=== PATIENT | female | born 1945 | race Caucasian/White ===

== ENCOUNTER 2018-04-30 06:23 | Day surgery (SDC) | payer MEDICARE, BC ==
[2018-04-30] MEDS: CEFUROXIME 1MG/0.1ML INTRACAMERAL INJ As Ordered (06:42)
[2018-04-30] MEDS: LIDOCAINE 0.75%/EPINEPHRINE 0.025% IN BSS 1ML SYR INTRACAMERAL (OR ONLY) As Ordered (06:42)
[2018-04-30] MEDS: PHENYLEPHRINE 2.5% OPHTH SOL 2ML OD (07:08)
[2018-04-30] MEDS: OFLOXACIN 0.3 % (OCUFLOX) OPTH SOL 5ML OD (07:08)
[2018-04-30] MEDS: PROPARACAINE 0.5% OPHTH SOL 15ML OD (07:08)
[2018-04-30] MEDS: TROPICAMIDE 1% OPHTH SOLN 2ML OD (07:08)
[2018-04-30] MEDS ORDERED: MIDAZOLAM INJ 2 MG/2 ML VIAL (J2250) As Ordered (07:10)
[2018-04-30] MEDS ORDERED: fentaNYL 100 MCG/2 ML INJECTION (J3010) As Ordered (07:10)
[2018-04-30 07:12] LABS: BEDSIDE GLUCOSE 148 MG/DL (83-110)
[2018-04-30] MEDS: BALANCED SALT IRRIGATION SOLUTION 500ML BAG (FOR OR EYE MACHINE) As Ordered (08:40)
[2018-04-30] MEDS: POVIDONE-IODINE 5% OPHTH PREP SOL 30ML As Ordered (08:40)
[2018-04-30] MEDS: DUOVISC (0.50ML VISCOAT/0.55ML PROVISC) OPHTH KIT As Ordered (08:40)
== END 2018-04-30 10:05 | disposition home or self-care (01) ==
LOC: M SDC 06:23
DX: H25.11 Age-related nuclear cataract, right eye (principal); I10 Essential (primary) hypertension; E78.5 Hyperlipidemia, unspecified; E11.9 Type 2 diabetes mellitus without complications; E03.9 Hypothyroidism, unspecified; K21.9 Gastro-esophageal reflux disease without esophagitis; J44.9 Chronic obstructive pulmonary disease, unspecified; Z79.82 Long term (current) use of aspirin; Z79.899 Other long term (current) drug therapy; Z87.891 Personal history of nicotine dependence
CPT/HCPCS: 66984

== ENCOUNTER 2018-09-18 15:44 | Inpatient (IN) | payer MEDICARE, BC ==
[~2018-09-18] VITALS: Ht 160 cm; Wt 80.8 kg
[~2018-09-18 15:44] MED LIST: ASPI1TAB PO; CALC600T31 PO; FURO40TA2 PO; GLIM2TAB PO; IPRA0.00 INH; LEVO100T5 PO; LOSA100T50 PO; METF10004 PO; OMEG1CAP16 PO; PARO20TA4 PO; POTA10TA16 PO
[2018-09-18] MEDS ORDERED: PRED5TA (16:13)
[2018-09-18] MEDS ORDERED: PANT40TA3 (16:13)
[2018-09-18] MEDS ORDERED: ASPI81TA21 (16:13)
[2018-09-18 17:01] LABS: VENOUS BASE EXCESS -3.6 (-2.0-2.0); VENOUS HCO3 22.3 MEQ/L (23.0-27.0); VENOUS O2 SATURATION 44.4 % (60.0-80.0); VENOUS PARTIAL PRESSURE CO2 43.3 mmHg (38.0-50.0); VENOUS PH 7.329 UNITS (7.330-7.430); VENOUS STANDARD HCO3 20.2 MEQ/L; VENOUS TOTAL CO2 23.6 MEQ/L (24.0-28.0)
[2018-09-18 17:03] LABS: HEMATOCRIT 46.2 % (36.0-47.0); HEMOGLOBIN 14.3 g/dl (12.0-15.5); MEAN CORPUSCULAR HEMOGLOBIN 26.4 pg (27.0-33.0); MEAN CORPUSCULAR VOLUME 85.2 fl (80.0-96.0); PLATELET COUNT, AUTOMATED 246 10^3/uL (150-450); RED BLOOD COUNT 5.42 10^6/uL (4.00-5.40); WHITE BLOOD COUNT 11.1 10^3/uL (4.0-10.0)
[2018-09-18] MEDS ORDERED: DEXTROSE 50% 50 ML SYRINGE IV STA (17:09)
[2018-09-18] MEDS ORDERED: DEXTROSE 50% 50 ML SYRINGE As Ordered ONE (17:10)
[2018-09-18 17:23] LABS: ALBUMIN 3.5 GM/DL (3.2-5.2); BILIRUBIN,DIRECT 0.6 MG/DL (0.0-0.2); BILIRUBIN,TOTAL 1.1 MG/DL (0.2-1.0); CALCIUM LEVEL 9.4 MG/DL (8.8-10.2); CREATININE FOR GFR 0.98 MG/DL (0.55-1.30); GLOMERULAR FILTRATION RATE 59.1 (>39); POTASSIUM SERUM 4.3 MEQ/L (3.5-5.1); THYROID STIMULATING HORMONE 1.97 uIU/ML (0.358-3.740); TOTAL PROTEIN 7.6 GM/DL (6.4-8.2)
[2018-09-18] MEDS ORDERED: IPRATROPIUM 0.5MG/ALBUTEROL 2.5MG INH SOL UD 3ML (DUONEB)(J7620) NEB ONE (19:45)
--- NOTE | 2018-09-18 20:28 | REP ---
Chest two views HISTORY: Shortness of breath Comparison: None A diffuse increase in interstitial markings is present in the lungs. The cardiac silhouette is enlarged. The pulmonary vasculature is prominent. There are small bilateral pleural effusions. The bony structure is intact. IMPRESSION: Findings consistent with congestive heart failure. Electronically Signed by Andrew Burgos MD 09/18/2018 08:20 P
[2018-09-18] MEDS ORDERED: FUROSEMIDE 100 MG/10 ML VIAL (J1940) IV ONE (20:30)
[2018-09-18] MEDS ORDERED: OMEG1CAP16 PO (20:54)
[2018-09-18 20:59] LABS: MB/CK RELATIVE INDEX 10.82 (< OR =4)
[2018-09-18] MEDS ORDERED: NORCO, ANEXSIA 5/325MG TABLET (HYDROcodone/ACETAMINOPHEN) PO PRN (23:30)
[2018-09-18] MEDS ORDERED: PERCOCET 5MG/325MG TAB PO PRN (23:30)
[2018-09-18] MEDS ORDERED: ACETAMINOPHEN TAB 650MG DOSE (2X325MG) PO PRN (23:30)
[2018-09-18] MEDS ORDERED: BISACODYL 5 MG TAB PO PRN (23:30)
[2018-09-19 03:20] LABS: BASO # 0.1 10^3/uL (0.0-0.2); BASO % 0.4 % (0.0-1.0); EOS % 0.2 % (0.0-3.0); HEMOGLOBIN 13.4 g/dl (12.0-15.5); LYMPH # 1.6 10^3/uL (1.5-4.5); LYMPH % 13.3 % (24.0-44.0); MEAN CORPUSCULAR HEMOGLOBIN 26.2 pg (27.0-33.0); MEAN CORPUSCULAR HGB CONC 30.5 g/dl (32.0-36.5); MEAN CORPUSCULAR VOLUME 86.1 fl (80.0-96.0); MONO % 7.9 % (0.0-5.0); NEUTROPHILS # 9.4 10^3/uL (1.8-7.7); NEUTROPHILS % 77.6 % (36.0-66.0); PLATELET COUNT, AUTOMATED 250 10^3/uL (150-450); RED BLOOD COUNT 5.11 10^6/uL (4.00-5.40); WHITE BLOOD COUNT 12.1 10^3/uL (4.0-10.0)
[2018-09-19 03:41] LABS: TROPONIN I 0.88 NG/ML (< 0.10)
[2018-09-19 04:00] LABS: ALBUMIN 3.1 GM/DL (3.2-5.2); CALCIUM LEVEL 8.9 MG/DL (8.8-10.2); CREATININE FOR GFR 1.11 MG/DL (0.55-1.30); GLOMERULAR FILTRATION RATE 51.2 (>39); POTASSIUM SERUM 3.8 MEQ/L (3.5-5.1); THYROID STIMULATING HORMONE 2.56 uIU/ML (0.358-3.740); TOTAL PROTEIN 6.6 GM/DL (6.4-8.2)
[2018-09-19] MEDS: DEXTROSE 50% 50 ML SYRINGE IV PRN (04:00)
[2018-09-19] MEDS ORDERED: GLUCOSE 4 GM CHEW TABLET PO PRN (04:30)
[2018-09-19] MEDS ORDERED: GLUCAGON FOR INJ 1 MG VIAL (J1610) SC PRN (04:30)
[2018-09-19] MEDS ORDERED: IPRATROPIUM 0.5MG/ALBUTEROL 2.5MG INH SOL UD 3ML (DUONEB)(J7620) NEB PRN ×2 (04:45→07:30)
[2018-09-19] MEDS ORDERED: D10W/0.45% SODIUM CHLORIDE 1,000 ML IV SCH (05:00)
[2018-09-19 05:25] LABS: HEMOGLOBIN A1c 7.3 %
[2018-09-19] MEDS ORDERED: FUROSEMIDE 40 MG/4 ML VIAL (J1940) IV SCH ×4 (06:00→16:00)
--- NOTE | 2018-09-19 06:44 | HPEPDOC ---
[facility] Medical History & Physical Date of Admission Sep 19, 2018 Primary Care Physician: A Attending Physician: A History and Physical CHIEF COMPLAINT: [sob ] HISTORY OF PRESENT ILLNESS: This is a 73 yo female with pmhx of copd on 4L home oxygen who presented to the ed with c/o fatigue and increased sob which has been going on for a long time, but has gotten progressively worse over the past few days. She denied any chest pain, fever , chills, cough or sputum production. ROS - all 14 point review of system is negative except for whats listed in HPI Physical exam Gen: NAD, healthy appearing HEENT: normocephalic , atraumatic, no discharge from ears or nose, no oropharyngeal erythema or exudate, neck is supple, no lymphadenopathy, trachea midline CVS: RRR, normal S1n S2, no murmurs, rubs, or gallops, +2 pitting edema in right leg, +1 in left leg, no jvd Resp: no rhochi, wheezes, but crackles her diffusely Abd : soft nontender, normal bowel sounds, no rebound tenderness or guarding MSK: no swelling, full range of motion, strength 5/5 neuro: AOA x3, no focal deficit Psych : normal mood and judgement vitals - significant for desaturation 70% when patient arrived in ed per endorsement , but it was quiickly im proved with supplemental oxygen - see vitals below Labs: significant for probnp of 4000, troponin 0.73, f/s 39 - repeat was higher after treatment ; however another f/s this morning was 28 per nurse EKbpm , a lot of artifats , no real ST elevation or depression , no T wave inversion IMAGING: CXR: A diffuse increase in interstitial markings is present in the lungs. The cardiac silhouette is enlarged. The pulmonary vasculature is prominent. There are small. bilateral pleural effusions. ASSESSMENT: CHF exacerbation chronic copd est DM2 hypoglycemia b/l lower extremity edema - right v> left PLAN: f/u echo trend trop 0.73 to 0.83 elevated troponin could be from chf exacerbation aspirin monitor in tele f/u venous doppler duoneb q4h prn symbicort bid f/u insulin level, pro insulin, glucagon and hba1c f/u am cortisol level hypoglycemic protocol hold all DM2 meds started 30cc of D10 drip for recurrent hypoglycemic episodes f/s q1h dvt ppx gi ppx full code, from home Vital Signs Vital Signs Date Time Temp Pulse Resp B/P (MAP) Pulse Ox O2 Delivery O2 Flow Rate FiO2 09/19/18 02:16 105 09/19/18 02:05 112/59 (76) 09/19/18 00:01 95 09/18/18 21:20 Venturi Mask 15.0 40 09/18/18 15:57 97.0 09/18/18 15:49 20 Laboratory Data Labs 24H Laboratory Tests 2 09/18/18 15:59: Bedside Glucose (Misc Panel) 93 09/18/18 16:02: Nucleated Red Blood Cells % (auto) 0.0, Blood Gas Bicarbonate Standard 20.2, Venous Blood pH 7.329L, Venous Blood Partial Pressure CO2 43.3, Venous Blood Partial Pressure O2 28.0L, Venous Blood Total Carbon Dioxide 23.6L, Venous Blood HCO3 22.3L, Venous Blood Oxygen Saturation 44.4L, Venous Blood Base Excess - 3.6L, Anion Gap 10, Glomerular Filtration Rate 59.1, Calcium Level 9.4, Aspartate Amino Transf (AST/SGOT) 28, Alanine Aminotransferase (ALT/SGPT) 20, Alkaline Phosphatase 96, Total Bilirubin 1.1H, Direct Bilirubin 0.6H, Total Creatine Kinase 73, Creatine Kinase MB 8.0H, Creatine Kinase MB Relative Index 10.82H, CH-Wgt-H-Type Natriuretic Peptide 4434H, Total Protein 7.6, Albumin 3.5, Albumin/Globulin Ratio 0.85L, Thyroid Stimulating Hormone (TSH) 1.970 09/18/18 17:07: Bedside Glucose (Misc Panel) 39*L 09/18/18 17:33: Bedside Glucose (Misc Panel) 111H 09/18/18 18:42: Bedside Glucose (Misc Panel) 133H 09/18/18 19:38: Bedside Glucose (Misc Panel) 155H 09/18/18 21:42: Troponin I 0.73H 09/19/18 03:06: Troponin I 0.88#H, Immature Granulocyte % (Auto) 0.6, White Blood Count 12.1H, Red Blood Count 5.11, Hemoglobin 13.4, Hematocrit 44.0, Mean Corpuscular Volume 86.1, Mean Corpuscular Hemoglobin 26.2L, Mean Corpuscular Hemoglobin Concent 30.5L, Red Cell Distribution Width 20.3H, Platelet Count 250, Neutrophils (%) (Auto) 77.6H, Lymphocytes (%) (Auto) 13.3L, Monocytes (%) (Auto) 7.9H, Eosinophils (%) (Auto) 0.2, Basophils (%) (Auto) 0.4, Neutrophils # (Auto) 9.4H, Lymphocytes # (Auto) 1.6, Monocytes # (Auto) 1.0H, Eosinophils # (Auto) 0.0, Basophils # (Auto) 0.1, Nucleated Red Blood Cells % (auto) 0.0, Anion Gap 10, Glomerular Filtration Rate 51.2, Blood Urea Nitrogen 13, Creatinine 1.11, Sodium Level 137, Potassium Level 3.8, Chloride Level 99, Carbon Dioxide Level 28, Calcium Level 8.9, Aspartate Amino Transf (AST/SGOT) 28, Alanine Aminotransferase (ALT/SGPT) 20, Alkaline Phosphatase 84, Total Bilirubin 1.0, Total Protein 6.6, Albumin 3.1L, Albumin/Globulin Ratio 0.89L, Thyroid Stimulating Hormone (TSH) 2.560 09/19/18 04:01: Bedside Glucose (Misc Panel) 24*L CBC/BMP Laboratory Tests 09/18/18 16:02 Red Blood Count 5.42 H, Mean Corpuscular Volume 85.2, Mean Corpuscular Hemoglobin 26.4 L, Mean Corpuscular Hemoglobin Concent 31.0 L, Red Cell Distribution Width 20.5 H 09/19/18 03:06 Red Blood Count 5.11, Mean Corpuscular Volume 86.1, Mean Corpuscular Hemoglobin 26.2 L, Mean Corpuscular Hemoglobin Concent 30.5 L, Red Cell Distribution Width 20.3 H, Neutrophils (%) (Auto) 77.6 H, Lymphocytes (%) (Auto) 13.3 L, Monocytes (%) (Auto) 7.9 H, Eosinophils (%) (Auto) 0.2, Basophils (%) (Auto) 0.4, Neutrophils # (Auto) 9.4 H, Lymphocytes # (Auto) 1.6, Monocytes # (Auto) 1.0 H, Eosinophils # (Auto) 0.0, Basophils # (Auto) 0.1, Calcium Level 8.9, Aspartate Amino Transf (AST/SGOT) 28, Alanine Aminotransferase (ALT/SGPT) 20, Alkaline Phosphatase 84, Total Bilirubin 1.0, Total Protein 6.6, Albumin 3.1 L Home Medications Scheduled ([place] 3 500 500 mg) 1 Cap Cap, 1 CAP PO DAILY Albuterol/Ipratropium (Ipratropium [place]/Albut 0.5-2.5 (3) mg/3Ml) 1 Adarsh Adarsh, 1 ADARSH INH BID Calcium (Calcium) 600 Mg Tab, 600 MG PO BID Furosemide (Furosemide) 40 Mg Tab, 40 MG PO DAILY Glimepiride (Glimepiride) 2 Mg Tab, 2 MG PO BID Levothyroxine Sodium (Synthroid) 100 Mcg Tab, 100 MCG PO DAILY Losartan Potassium (Losartan Potassium) 100 Mg Tab, 100 MG PO DAILY Metformin Hydrochloride (Metformin HCl) 1,000 Mg Tab, 1,000 MG PO BID Paroxetine Hydrochloride (Paroxetine) 20 Mg Tab, 20 MG PO DAILY Potassium Chloride (Potassium Chloride ER) 10 Meq Tab, 10 MEQ PO BID Allergies Coded Allergies: No Known Allergies (Unverified , 04/22/18) ELVIA SANCHEZ MD Sep 19, 2018 04:38
[2018-09-19 07:28] LABS: C REACTIVE PROTEIN QUANTITATIV 0.42 MG/DL (0.00-0.30)
[2018-09-19] MEDS: IPRATROPIUM 0.5MG/ALBUTEROL 2.5MG INH SOL UD 3ML (DUONEB)(J7620) NEB SCH ×3 (08:00→20:00)
--- NOTE | 2018-09-19 08:05 | ECGEPIP ---
Stationary ECG Study [facility] - ED Test Date: 2018-09-18 Pat Name: VITOR BRAND Department: Room: [place] [address] Gender: F Methods Engineer: bernard : 1945 Requested By: LIONEL CALLAWAY Order Number: [id number] Reading MD: Desean Khan Measurements Intervals [place] Rate: 99 P: 84 [place]: 157 QRS: 115 QRSD: 95 T: 70 QT: 338 QTc: 434 Interpretive Statements SINUS RHYTHM INCOMPLETE RIGHT BUNDLE BRANCH BLOCK POSSIBLE RIGHT VENTRICULAR HYPERTROPHY MINIMAL ST DEPRESSION NO PRIORS FOR COMPARISON Electronically Signed On 09-19-2018 8:05:09 EST by Desean Khan
[2018-09-19 08:11] LABS: MB/CK RELATIVE INDEX 5.64 (< OR =4); TROPONIN I 0.79 NG/ML (< 0.10)
[2018-09-19] MEDS: PANTOPRAZOLE 40MG TAB (PROTONIX) PO SCH (08:53)
[2018-09-19] MEDS: LEVOTHYROXINE 100MCG TABLET (0.1MG) PO SCH (08:53)
[2018-09-19] MEDS: ASPIRIN 81 MG ENTERIC TAB PO SCH (08:54)
[2018-09-19] MEDS: PARoxetine 20 MG TAB PO SCH (08:54)
[2018-09-19] MEDS: LOSARTAN 50 MG TAB PO SCH ×2 (08:59→09:06)
[2018-09-19] MEDS ORDERED: ISOVUE-370 76% 100ML VIAL (Q9967) As Ordered ONE (09:23)
[2018-09-19] MEDS: ENOXAPARIN 40 MG/0.4 ML SYRINGE (J1650) SC SCH (09:50)
[2018-09-19] MEDS: SYMBICORT 80/4.5MCG INHALER 6GM INH SCH ×2 (11:12→20:00)
--- NOTE | 2018-09-19 11:20 | REP ---
CT ANGIO CHEST: HISTORY: Hypoxia. CONTRAST: Isovue-370, 75 mL. There are no filling defects in the main, right, and left pulmonary arteries or their branches. A diffuse increase in interstitial markings is present in the lungs, greater in the lower than upper lobes. There is no pleural effusion. The cardiac silhouette is enlarged. There is no aneurysm. Atherosclerotic calcification is present in the thoracic aorta. Degenerative change is present in the thoracic spine. Calcification is present in the gallbladder, consistent with cholelithiasis. A 1.8 cm nodule is present in the left adrenal gland. This most likely represents an adenoma. IMPRESSION: 1. There is no pulmonary embolism. 2. There is a diffuse increase in interstitial markings in the lungs, greater in the lower than upper lobes. This may represent interstitial edema, pneumonia, or chronic interstitial fibrosis. 3. Cardiomegaly. 4. Cholelithiasis. Electronically Signed by Andrew Burgos MD 09/19/2018 11:30 A
[2018-09-19 12:29] VITALS: BP 95/66
[2018-09-19 12:30] VITALS: BP 88/56
[2018-09-19 13:46] LABS: MB/CK RELATIVE INDEX 4.58 (< OR =4); TROPONIN I 0.64 NG/ML (< 0.10)
[2018-09-19 15:01] VITALS: BP 96/68
[2018-09-19 15:45] VITALS: BP 101/68
[2018-09-19] MEDS: FUROSEMIDE 40 MG/4 ML VIAL (J1940) IV SCH (17:00)
[2018-09-19 17:21] VITALS: BP 92/66
[2018-09-19] MEDS: HumaLOG INSULIN (NovoLOG) PER UNIT SC SCH ×2 (17:30→20:59)
--- NOTE | 2018-09-19 19:38 | IPN ---
DATE: 09/19/2018 Patient admitted overnight. Currently feeling much more comfortable. Denies any chest pain, pressure or discomfort. Denies any nausea or vomiting. Continued to report shortness of breath. Reported worsening lower extremity edema over the past 3-5 days. Denies any cough or fever. VITAL SIGNS: Temperature 99.6, pulse 109, respirations 20, blood pressure 95/66, pulse oximetry 91% on 3 liters nasal cannula. LABORATORY: WBC 12, hemoglobin and hematocrit (H and H) 13.4 and 44, platelets 250. Chemistry: Sodium 137, potassium 3.8, chloride 99, bicarbonate 28, BUN 13, creatinine 1.11. PHYSICAL EXAMINATION: GENERAL: Patient comfortable, eating breakfast, in no acute distress. HEENT: Normocephalic, atraumatic. CARDIAC: Regular. S1, S2. 2/6 systolic murmur. PULMONARY: Diffuse fine crackles bilateral. ABDOMEN: Soft, nontender. Positive bowel sounds. EXTREMITIES: One plus bilateral lower extremity edema. Dorsalis pedis (DP)/posterior tibial (PT) pulses intact. ASSESSMENT AND PLAN: This is a 73-year-old female patient with underlying medical history of chronic obstructive pulmonary disease (COPD), 2-4 liter oxygen at home, diabetes mellitus type 2, obesity, hypertension, dyslipidemia, depression, presented with progressive worsening shortness of breath, bilateral lower extremity edema, and acute on chronic hypoxic respiratory failure. PROBLEMS: 1. Acute on chronic hypoxic respiratory failure. Likely secondary to new onset congestive heart failure (CHF). Possible right heart failure, cor pulmonale. Unknown ejection fraction. Diuresis with Lasix. Strict input and output (I and O), daily weight. Consulted cardiology. Serial cardiac enzymes. Monitor blood pressure. Continue aspirin. 2. Mild troponin elevation. Likely secondary to demand ischemia, secondary to CHF. Cardiology consulted. Stat echocardiogram has been ordered. 3. Chronic hypoxic respiratory failure. Secondary to chronic obstructive pulmonary disease (COPD). Oxygen supplementation. CT angiogram negative for pulmonary embolism (PE). 4. Hypoglycemia. Unknown etiology. Possible secondary to poor oral intake in the setting of home sulfonylurea intake. Hypoglycemic workup has been ordered. Fingersticks every 2 hours initially on D10 fluids. Currently tolerating oral with stable glucose. Will cover with basal bolus insulin. Will cover with meal target insulin protocol. A1c is appreciated. 5. History of COPD. Patient currently not having any wheeze. CT scan appreciated. Supportive care. Nebulizer treatment as needed. 6. Hypertension. Patient currently borderline blood pressure. Holding losartan. Patient on Lasix. Monitor blood pressure. Adjust as needed. 7. Depression. Continue current medication. 8. Diabetes with hypoglycemia. Holding oral medications. Insulin via protocol. Follow fingersticks. 9. Hypothyroidism. Continue Synthroid. Thyroid stimulating hormone (TSH) appreciated. 10. Obesity complicating care. 11. Lactic acidosis. Likely secondary to CHF. Will monitor closely. 12. Deep venous thrombosis (DVT) prophylaxis. Lovenox subcutaneously. DISPOSITION: Pending clinical improvement, echocardiogram, cardiology consultation.
[2018-09-19 20:00] VITALS: BP 92/60
[2018-09-20] VITALS (7 sets, daily range): BP systolic 11–111; BP diastolic 58–74
[2018-09-20] MEDS: IPRATROPIUM 0.5MG/ALBUTEROL 2.5MG INH SOL UD 3ML (DUONEB)(J7620) NEB SCH ×4 (02:36→20:00)
[2018-09-20 05:51] LABS: HEMATOCRIT 37.8 % (36.0-47.0); HEMOGLOBIN 11.8 g/dl (12.0-15.5); MEAN CORPUSCULAR HGB CONC 31.2 g/dl (32.0-36.5); MEAN CORPUSCULAR VOLUME 83.4 fl (80.0-96.0); PLATELET COUNT, AUTOMATED 213 10^3/uL (150-450); RED BLOOD COUNT 4.53 10^6/uL (4.00-5.40); WHITE BLOOD COUNT 7.7 10^3/uL (4.0-10.0)
[2018-09-20] MEDS: LEVOTHYROXINE 100MCG TABLET (0.1MG) PO SCH (06:00)
[2018-09-20 06:13] LABS: ALBUMIN 2.5 GM/DL (3.2-5.2); BILIRUBIN,TOTAL 0.9 MG/DL (0.2-1.0); CALCIUM LEVEL 8.2 MG/DL (8.8-10.2); CHOLESTEROL RISK RATIO 1.895 (<5); CREATININE FOR GFR 1.11 MG/DL (0.55-1.30); GLOMERULAR FILTRATION RATE 51.2 (>39); MAGNESIUM LEVEL 1.6 MG/DL (1.8-2.4); POTASSIUM SERUM 3.4 MEQ/L (3.5-5.1); TOTAL PROTEIN 5.9 GM/DL (6.4-8.2)
[2018-09-20] MEDS: HumaLOG INSULIN (NovoLOG) PER UNIT SC SCH ×4 (07:30→20:47)
--- NOTE | 2018-09-20 07:45 | ECHO ---
DATE OF SERVICE: 09/19/2018 REFERRING PROVIDER: Dr. Vannesa Perez PRIMARY TRICK RODEO RIDER: Dr. Nunes PATIENT LOCATION: Room 3224 REASON FOR ECHOCARDIOGRAM: Shortness of breath. 2D MEASUREMENTS: IVS: 0.9 cm LV: 4.6 cm LVPW: 0.9 cm LA: 3.4 cm Aorta: 2.9 cm IVC: 3.7 cm DOPPLER MEASUREMENTS: Peak velocity across the aortic valve: 1.1 m/s Mitral E: 0.59 Mitral A: 0.34 with a ratio of 0.6 Maximum tricuspid valve velocity: 3.7 m/s 2D COMMENTS: 1. Normal left ventricular size and wall thickness, but with a moderately depressed global left ventricular systolic dysfunction. There was moderate global hypokinesis. The estimated left ventricular systolic ejection fraction is 30-35%. 2. Normal left atrium. Dilated right atrium and right ventricle. There seems to be right ventricular systolic dysfunction with hypokinesis of the right ventricular free wall noted. 3. Normal aortic root. 4. Small pericardial effusion, no evidence of cardiac tamponade. 5. Mildly calcified aortic valve with normal leaflet excursion. Mildly calcified mitral annulus with normal anterior mitral valve leaflet motion. The tricuspid valve appeared to be normal, as well as the pulmonic valve. The proximal pulmonary artery branches were not well visualized. 6. The inferior vena cava was dilated at 2.9 cm, central venous pressure is most likely elevated. Doppler, it detects trace mitral regurgitation and severe tricuspid regurgitation. The calculated pulmonary artery systolic pressure was more than 70 mmHg. Abnormal relaxation patter was noted across the mitral valve leaflets as well as the mitral valve annulus consistent with delayed relaxation. IMPRESSION: 1. Moderate global left ventricular systolic dysfunction with global hypokinesis. There were features of left ventricular diastolic dysfunction, grade 1. 2. Aortic valve sclerosis without stenosis or aortic regurgitation. 3. Mitral annulus calcification with trace mitral regurgitation. 4. Severe tricuspid regurgitation with severe pulmonary hypertension and dilated right heart chambers. There were also findings consistent with right ventricular systolic dysfunction. 5. The inferior vena cava was dilated, central venous pressure is most likely elevated.
[2018-09-20] MEDS ORDERED: POTASSIUM CHLORIDE 10 MEQ SR TABLET PO ONE (08:30)
[2018-09-20] MEDS: PARoxetine 20 MG TAB PO SCH (08:48)
[2018-09-20] MEDS: FUROSEMIDE 40 MG/4 ML VIAL (J1940) IV SCH (08:48)
[2018-09-20] MEDS: ENOXAPARIN 40 MG/0.4 ML SYRINGE (J1650) SC SCH (08:48)
[2018-09-20] MEDS: ASPIRIN 81 MG ENTERIC TAB PO SCH (08:48)
[2018-09-20] MEDS: PANTOPRAZOLE 40MG TAB (PROTONIX) PO SCH (08:49)
[2018-09-20] MEDS ORDERED: MAG SULF 1GM/100ML (MAG RUN) 1 GM in APPROPRIATE DILUENT 1 EA IV ONE (09:00)
[2018-09-20] MEDS: MAGNESIUM CHLORIDE 64 MG TABCR (SLO MAG) PO SCH (09:00)
[2018-09-20] MEDS: SYMBICORT 80/4.5MCG INHALER 6GM INH SCH ×2 (10:22→21:23)
--- NOTE | 2018-09-20 15:41 | ECGEPIP ---
Stationary ECG Study [facility] Test Date: 2018-09-19 Pat Name: VITOR BRAND Department: Room: [place] [address] Gender: F [employer] Law Clerk: SULY : 1945 Requested By: ELVIA SANCHEZ Order Number: [id number] Reading MD: Arsh Turcios Measurements Intervals [place] Rate: 98 P: 64 [place]: 147 QRS: 115 QRSD: 100 T: 147 QT: 392 QTc: 502 Interpretive Statements SINUS RHYTHM WITH OCCASIONAL ECTOPIC PREMATURE COMPLEXES POSSIBLE LEFT ATRIAL ENLARGEMENT INCOMPLETE RIGHT BUNDLE BRANCH BLOCK POSSIBLE RIGHT VENTRICULAR HYPERTROPHY NONSPECIFIC ST-T ABNORMALITY LOW VOLTAGE QRS COMPLEXES PRIOR TRACING ON 09/18/2018 AT 21:27:00 P.M.. NO REMARKABLE CHANGES BUT PREMATURE BEATS/PVCS Electronically Signed On 09-20-2018 15:41:21 EST by Arsh Turcios
[2018-09-20] MEDS: EUCERIN 120GM CREAM TOP SCH ×2 (16:00→20:47)
--- NOTE | 2018-09-20 20:03 | IPNPDOC ---
Text Note Date of Service The patient was seen on 09/20/18. NOTE respiration improved. Denied chest pain pressure or discomfort. PHYSICAL EXAMINATION: GENERAL: Patient comfortable, eating breakfast, in no acute distress. HEENT: Normocephalic, atraumatic. CARDIAC: Regular. S1, S2. 2/6 systolic and diastolic murmur. PULMONARY: Diffuse fine crackles bilateral. ABDOMEN: Soft, nontender. Positive bowel sounds. EXTREMITIES: One plus bilateral lower extremity edema. Dorsalis pedis (DP)/posterior tibial (PT) pulses intact. ASSESSMENT AND PLAN: This is a 73-year-old female patient with underlying medical history of chronic obstructive pulmonary disease (COPD), 2-4 liter oxygen at home, diabetes mellitus type 2, obesity, hypertension, dyslipidemia, depression, presented with progressive worsening shortness of breath, bilateral lower extremity edema, and acute on chronic hypoxic respiratory failure. PROBLEMS: 1. Acute on chronic hypoxic respiratory failure. Secondary to new onset congestive heart failure (CHF) with systolic dysfunction EF 30-35%, right HF. cor pulmonale. Diuresis with Lasix. Strict input and output (I and O), daily weight. Consulted cardiology. Serial cardiac enzymes. Monitor blood pressure. Continue aspirin. need outpatient f/u with pulmonary for Pul HTN 2. Mild troponin elevation. Likely secondary to demand ischemia, secondary to CHF. Cardiology consulted. Stat echocardiogram has been ordered. 3. Chronic hypoxic respiratory failure. Secondary to chronic obstructive pulmonary disease (COPD). Oxygen supplementation. CT angiogram negative for pulmonary embolism (PE). 4. Hypoglycemia. Unknown etiology. Possible secondary to poor oral intake in the setting of home sulfonylurea intake. Hypoglycemic workup has been ordered. Fingersticks every 2 hours initially on D10 fluids. Currently tolerating oral with stable glucose. insulin as per protocol A1c is appreciated. 5. History of COPD. Patient currently not having any wheeze. CT scan appreciated. Supportive care. Nebulizer treatment as needed. 6. Hypertension. Patient currently borderline blood pressure. Holding losartan. Patient on Lasix. Monitor blood pressure. Adjust as needed. 7. Depression. Continue current medication. 8. Diabetes with hypoglycemia. Holding oral medications. Insulin via protocol. Follow fingersticks. 9. Hypothyroidism. Continue Synthroid. Thyroid stimulating hormone (TSH) appreciated. 10. Obesity complicating care. 11. Lactic acidosis. Likely secondary to CHF. Will monitor closely. resolved 12. Deep venous thrombosis (DVT) prophylaxis. Lovenox subcutaneously. DISPOSITION: Pending clinical improvement, cardiology consultation, PT VS,Nikolas, I+O VS, Nikolas, I+O Laboratory Tests 09/20/18 04:46 Red Blood Count 4.53, Mean Corpuscular Volume 83.4, Mean Corpuscular Hemoglobin 26.0 L, Mean Corpuscular Hemoglobin Concent 31.2 L, Red Cell Distribution Width 19.4 H, Calcium Level 8.2 L, Aspartate Amino Transf (AST/SGOT) 23, Alanine Aminotransferase (ALT/SGPT) 16, Alkaline Phosphatase 70, Total Bilirubin 0.9, Triglycerides Level 58, LDL Cholesterol 31, Total Protein 5.9 L, Albumin 2.5 L Vital Signs Date Time Temp Pulse Resp B/P (MAP) Pulse Ox O2 Delivery O2 Flow Rate FiO2 09/20/18 19:49 4.0 09/20/18 19:48 97.2 99 22 97/61 (73) 91 High Flow Cannula 09/19/18 12:30 35 I&O- Last 24 Hours up to 6 AM 09/20/18 06:00 Intake Total 825 ml Output Total 1150 ml Balance -325 ml DEDRA NAPOLES MD Sep 20, 2018 20:03
--- NOTE | 2018-09-20 21:10 | CR ---
DATE OF SERVICE: 09/19/2018 REFERRING PROVIDER: Vannesa Perez MD PRIMARY PHYSICIAN: Dr. Nunes. REASON FOR THE CONSULT: Shortness of breath. HISTORY OF PRESENTING ILLNESS: A 73-year-old woman was sent to the emergency room (ER) by her son because he has noticed that she appeared to be more shortness of breath than usual. When she was being brought to the ER, she was found to be hypoglycemic with a blood sugar fingerstick reported to be about 30. Upon arrival to the ER, her vital signs revealed a blood pressure of 101/68 with a pulse of 101 and her oxygen saturation on room air was reported to be 90%. For her hypoglycemia, she was treated with D50 by emergency medical services (EMS). Her laboratories reveal manifestation of heart failure and she was admitted for further management and monitoring. Cardiology consult was called. When I saw Ms. Sue Deras on the floor, she was lying supine in bed and in no acute distress at rest and her brother was at the bedside. She denies any chest pain. She has been having more shortness of breath than usual at home but she stated that she feels much better since the hospital. She has increasing bilateral pedal edema but no orthopnea or paroxysmal nocturnal dyspnea (PND). She denied any palpitations. She has no focal manifestation. She has a cough but not hematemesis. She denies any fever or chills. She has no nausea, vomiting, diarrhea, melena, or hematemesis. She has a past medical history positive for chronic obstructive pulmonary disease (COPD) for which she has been seen with transfer man in town, hypertension, hyperlipidemia, diabetes mellitus, hypothyroidism, anxiety/depression, arthritis with degenerative joint disease and degenerative disc disease. There is no known history of coronary artery disease, myocardial infarction, significant valvular heart disease, atrial fibrillation, cerebrovascular accident (CVA), cardiomyopathy, sudden cardiac or kidney disease. MEDICATIONS AT HOME: - metformin 1000 mg by mouth twice a day - losartan 100 mg by mouth daily - glimepiride 2 mg by mouth twice a day - levothyroxine 100 mcg by mouth daily - paroxetine 20 mg by mouth daily - calcium 600 mg by mouth twice a day - Lasix 40 mg by mouth daily - Destiny Ciel 10 mEq by mouth daily - albuterol/ipratropium bromide via inhalation twice a day - fish oil one capsule by mouth daily SOCIAL HISTORY: The patient lives at home with her son. She does not smoke or abuse alcohol. She is a former smoker. She denies ethanol (EtOH) abuse. ALLERGIES: She has no known drug allergies. PHYSICAL EXAMINATION: On physical examination, patient is alert and oriented with mild shortness of breath at rest but in no acute distress at rest. Her vital signs when I saw her revealed a blood pressure of 101/68 with a pulse of 106, respirations 20, and her maximum temperature was 97.6 degrees Fahrenheit with an oxygen saturation of 89% to 98% on 3 liters nasal cannula. Examination of the head: Atraumatic. Neck is supple with extended jugular. The lungs reveal minimal crackles but no wheezing. The heart examination revealed a regular heart sound without gallops. The point of maximal impulse (PMI) is not displaced. There is no rub. Abdomen is soft and nontender. Extremities reveal +2 to +3 bilateral leg edema. Neurologic examination grossly is negative for focal deficit. LABORATORIES: Basic metabolic panel (BMP) this morning revealed a sodium of 137, potassium 3.8, chloride 99, CO2 28, BUN 13, creatinine 1.11, glomerular filtration rate (GFR) 51.2 and fasting glucose 28 with a calcium of 8.9. Liver enzymes reveal a total bilirubin of 1.0, AST 28, ALT 20, alkaline phosphatase 84, total protein is 6.6. Serum thyroid-stimulating hormone (TSH) is 2.5. First serum troponin was 0.73, then 0.88, then 0.79 and 0.64. This would be numbers 1 up to number 4. Serum lactic acid was 2.8 and four hours later was 2.0. Serum proBNP on admission was 4,434. Serum TSH was 1.97. Complete blood count (CBC) done today revealed a white blood cell (WBC) of 12.1, hemoglobin 13.4, hematocrit 44.0 and platelets 260,000. Toxicology screening is pending. Chest x-ray on 09/18/2018 on admission revealed findings consistent with congestive heart failure and mild cardiomegaly. There was small bilateral effusion and increased interstitial markings. CT angiogram of the done 09/19/2018 revealed no evidence of pulmonary embolism but diffuse increase in interstitial markings in the lungs greater in the lower than upper lobes, cardiomegaly, cholelithiasis. Vascular ultrasound was done and ultrasound report is pending. An echocardiogram was done and it revealed a normal global left ventricular systolic function, findings consistent with severe pulmonary hypertension and right-sided heart failure. IMPRESSION: 1. Decompensated congestive heart failure, acute on chronic similar to left ventricular diastolic dysfunction. 2. Right-sided failure. 3. History of hypertension. 4. History of diabetes mellitus. 5. History of chronic obstructive pulmonary disease (COPD). 6. Severe pulmonary hypertension. 7. Anxiety/depression. 8. Arthritis with degenerative joint disease and degenerative disc disease. 9. Abnormal serum troponin, most likely related to demand ischemia in the setting of heart failure. Ms. Sue Deras medications were reviewed and I will continue with the intravenous (IV) Lasix but we need to monitor closely her BUN, creatinine and serum potassium. I agree with holding her angiotensin II receptor anh (ARB) in order to prevent hypotension. We should continue with the bronchodilators. She might benefit from pulmonary evaluation, it seems that she has seen Dr. Conde in the past. Her major problem seems to be right-sided heart failure in the setting of diastolic dysfunction and diastolic heart failure. She will continue with oxygen supplement. She will be started on a baby aspirin daily and I will check her lipid profile while in the hospital and then further recommendations will be given. It was a pleasure to participate in the care of Ms. Sue Deras for her underlying cardiac condition. I will continue to monitor her along with you while in the hospital and upon discharge, she will continue to follow with her primary, Dr. Nunes. Her prognosis from a cardiac point of view is poor. Please do not hesitate to call if any questions.
[2018-09-21] VITALS: BP 105/64
[2018-09-21] MEDS: IPRATROPIUM 0.5MG/ALBUTEROL 2.5MG INH SOL UD 3ML (DUONEB)(J7620) NEB SCH ×4 (02:00→21:10)
[2018-09-21 04:00] VITALS: BP 112/78
[2018-09-21 05:22] LABS: HEMATOCRIT 36.8 % (36.0-47.0); HEMOGLOBIN 11.5 g/dl (12.0-15.5); MEAN CORPUSCULAR HEMOGLOBIN 25.7 pg (27.0-33.0); MEAN CORPUSCULAR HGB CONC 31.3 g/dl (32.0-36.5); MEAN CORPUSCULAR VOLUME 82.3 fl (80.0-96.0); PLATELET COUNT, AUTOMATED 198 10^3/uL (150-450); RED BLOOD COUNT 4.47 10^6/uL (4.00-5.40); WHITE BLOOD COUNT 8.9 10^3/uL (4.0-10.0)
[2018-09-21 05:33] LABS: ALBUMIN 2.5 GM/DL (3.2-5.2); BILIRUBIN,TOTAL 0.9 MG/DL (0.2-1.0); CALCIUM LEVEL 8.1 MG/DL (8.8-10.2); CREATININE FOR GFR 1.04 MG/DL (0.55-1.30); GLOMERULAR FILTRATION RATE 55.1 (>39); MAGNESIUM LEVEL 1.8 MG/DL (1.8-2.4); POTASSIUM SERUM 3.6 MEQ/L (3.5-5.1); TOTAL PROTEIN 5.9 GM/DL (6.4-8.2)
[2018-09-21] MEDS: LEVOTHYROXINE 100MCG TABLET (0.1MG) PO SCH (05:47)
[2018-09-21] MEDS: SYMBICORT 80/4.5MCG INHALER 6GM INH SCH ×2 (07:48→21:10)
[2018-09-21 08:00] VITALS: BP 112/71
[2018-09-21] MEDS ORDERED: POTASSIUM CHLORIDE 10 MEQ SR TABLET PO ONE (08:00)
[2018-09-21] MEDS: MAGNESIUM CHLORIDE 64 MG TABCR (SLO MAG) PO SCH (08:17)
[2018-09-21] MEDS: ENOXAPARIN 40 MG/0.4 ML SYRINGE (J1650) SC SCH (08:17)
[2018-09-21] MEDS: FUROSEMIDE 40 MG/4 ML VIAL (J1940) IV SCH (08:17)
[2018-09-21] MEDS: ASPIRIN 81 MG ENTERIC TAB PO SCH (08:18)
[2018-09-21] MEDS: PARoxetine 20 MG TAB PO SCH (08:18)
[2018-09-21] MEDS: PANTOPRAZOLE 40MG TAB (PROTONIX) PO SCH (08:18)
[2018-09-21] MEDS: HumaLOG INSULIN (NovoLOG) PER UNIT SC SCH ×4 (08:19→21:23)
--- NOTE | 2018-09-21 09:24 | IPN ---
DATE: 09/21/2018 Ms. Deras tells me that she is feeling much improved. Her dyspnea is not too far from her baseline. She denies any chest discomfort. Vital Signs: Blood pressure 112/78. Heart rate has been in 90s and low 100s, sinus rhythm, with occasional ectopy. Saturation is 96% on 4 liters of oxygen by nasal cannula. She put out about 1600 mL negative balance yesterday. Weight is documented of 74, which is actually higher than yesterday. Lungs reveal Velcro type of crackles throughout her lung felipe bilaterally. Heart exam reveals a regular rhythm, mildly tachycardiac. I do not appreciate any distinct gallop. There is a murmur best heard left from the sternum. Abdomen is soft, nontender. There is about 1+ edema around ankles. Neurologically she is intact. Laboratories: Hemoglobin 11.5, hematocrit 36, platelet count 198,000. Basic metabolic panel: potassium 3.6, BUN 18, creatinine 1.0 and glucose 112. Her troponin peaked at 0.88 on the 5th, which is 2 days ago, and her N-terminal pro BNP was 4400. Echocardiogram interpreted by Dr. Turcios on the revealed global left ventricular systolic dysfunction with estimated left ventricle ejection fraction (LVEF) around 30-35%, small pericardial effusion, aortic sclerosis, trace mitral insufficiency and severe tricuspid insufficiency, with severe pulmonary hypertension and dilated right ventricle chambers. Her electrocardiogram also on the 5th revealed presence of sinus rhythm with right bundle branch block, left posterior hemiblock and nonspecific repolarization abnormalities. Overall suggestive of pulmonary hypertension. ASSESSMENT/PLAN: Ms. Deras is a 73-year-old female who has presented with shortness of breath and was found to have left ventricle systolic dysfunction which was felt to be moderate and a component of congestive heart failure with secondary pulmonary hypertension. She has been treated principally with diuretics which led to improvement of her dyspnea and she feels that she is currently close to her baseline. There was a small troponin elevation in the indeterminate range. She did not have any chest discomfort. I am going to obtain followup electrocardiogram to make sure there has not been any evolution on EKG. We will continue her diuretics and I will start treatment with medications proven to be beneficial in the setting of LV dysfunction. Unfortunately, it is somewhat complicated because of her very borderline blood pressure and consequently will start with very tab doses. I do not think she will tolerate Entresto and will give her only a small dose of MARYJANE inhibitors tonight. I am not going to give her beta blockers as well, but if her condition improved some more, will tentatively start her on tomorrow.
[2018-09-21] MEDS: EUCERIN 120GM CREAM TOP SCH (09:56)
[2018-09-21 12:00] VITALS: BP 114/75
[2018-09-21 16:00] VITALS: BP 110/70
--- NOTE | 2018-09-21 16:04 | IPN ---
DATE OF SERVICE: 09/20/2018 Ms. Sue Deras was seen yesterday. She was admitted with heart failure. She underwent an echocardiogram and it revealed a moderately depressed global left ventricular systolic dysfunction with severe pulmonary hypertension and dilated right heart chambers. She was seen earlier today, she was sitting in the chair in no acute distress at rest and she said that she is feeling much better. Her pedal edema has improved. She denies any chest pain, or palpitations. There is no report of bleeding. PHYSICAL EXAMINATION: On physical examination, patient is alert and oriented and in no acute distress at rest. Her vital signs when I saw her earlier today revealed a blood pressure of 107/70 with a pulse of 94, respirations 18, and her maximum temperature is 97.5 degrees Fahrenheit with an oxygen saturation of 90% - 96% on 4 liters nasal cannula. Examination of the head: Atraumatic. Neck is supple with extended jugular. The lungs revealed bilateral crackles but no wheezing. The heart examination revealed an irregular heart sound without gallops. The point of maximal impulse (PMI) is nondisplaced inferiorly. There is no rub. There is a systolic murmur grade 2/6 at the lower left sternal border without radiation. Abdomen is soft. Extremities reveal +1 bilateral lower leg and pedal edema. Neurologic examination is negative for focal deficit. LABORATORIES: A complete blood count (CBC) done today revealed a white blood cell (WBC) of 7.1, hemoglobin 11.8, hematocrit 37.8 and platelets 213,000. Basic metabolic panel (BMP) revealed a sodium of 134, potassium 3.4, chloride 98, CO2 27, BUN 14, creatinine 1.11, glomerular filtration rate (GFR) 51.2, fasting glucose 82, and calcium 8.2. Serum magnesium is 1.6. Liver enzymes reveal a total bilirubin of 0.9, AST 23, ALT 16, alkaline phosphatase 70, total protein 5.9, albumin 2.5. Serum troponin initially was 0.73 then peaked to 0.88 and today, is 0.64. An echocardiogram done yesterday revealed a depressed global left ventricular ejection function, estimated at 30% to 35% and global hypokinesis, dilated right heart chambers with hypokinesis of the right ventricular free wall consistent with depressed left ventricular ejection function (LVEF), small pericardial effusion, dilated inferior vena cava, severe tricuspid regurgitation. There are features of left ventricular diastolic dysfunction. IMPRESSION: A 73-year-old woman with biventricular systolic dysfunction was admitted with heart failure. Currently on intravenous (IV) Lasix and she has responded. Prior to coming to the hospital, she was on the high dose of losartan and it was discontinued because of low blood pressure. I will continue the same and monitor closely her BUN, creatinine and serum potassium. If her blood pressure remains stable, she can be restarted on a small dose of MARYJANE inhibitor and ramipril will be good choice for her because less likely to drop her blood pressure. We can start at 1.25 mg by mouth daily. She has severe pulmonary hypertension and a dilated right ventricle but CT angiogram of the chest done on admission was negative for pulmonary embolism. There were increased vascular markings that seem to be related to chronic interstitial fibrosis. This may be a major issue of underlying lung disease and consequently right-sided heart failure. The left ventricular systolic dysfunction also is a contributing factor. In the future, after starting the MARYJANE inhibitor, if her blood pressure remains stable, we can consider a small dose of carvedilol. If she is again readmitted to the hospital with heart failure, she might be a good candidate for Entresto but she will need to monitor closely for hypotension and kidney injury. It was a pleasure to participate in the care of . Sue Deras for her underlying cardiac condition. We will continue to monitor her along with you while in the hospital. Please do not hesitate to call if any questions.
--- NOTE | 2018-09-21 18:24 | IPNPDOC ---
Text Note Date of Service The patient was seen on 09/21/18. NOTE Respiration improved. Denied chest pain pressure or discomfort. Desaturation with PT. PHYSICAL EXAMINATION: GENERAL: Patient comfortable, eating breakfast, in no acute distress. HEENT: Normocephalic, atraumatic. CARDIAC: Regular. S1, S2. 2/6 systolic and diastolic murmur. PULMONARY: Diffuse fine crackles bilateral. ABDOMEN: Soft, nontender. Positive bowel sounds. EXTREMITIES: One plus bilateral lower extremity edema. Dorsalis pedis (DP)/posterior tibial (PT) pulses intact. ASSESSMENT AND PLAN: This is a 73-year-old female patient with underlying medical history of chronic obstructive pulmonary disease (COPD), 2-4 liter oxygen at home, diabetes mellitus type 2, obesity, hypertension, dyslipidemia, depression, presented with progressive worsening shortness of breath, bilateral lower extremity edema, and acute on chronic hypoxic respiratory failure. PROBLEMS: 1. Acute on chronic hypoxic respiratory failure. Secondary to new onset congestive heart failure (CHF) with systolic dysfunction EF 30-35%, right HF. cor pulmonale. Diuresis with Lasix. Strict input and output (I and O), daily weight. Consulted cardiology. Serial cardiac enzymes. Monitor blood pressure. Continue aspirin. need outpatient f/u with pulmonary for Pul HTN. Lisinopril added by cardio 2. Mild troponin elevation. Likely secondary to demand ischemia, secondary to CHF. Cardiology consulted. Stat echocardiogram has been ordered. 3. Chronic hypoxic respiratory failure. Secondary to chronic obstructive pulmonary disease (COPD). Oxygen supplementation. CT angiogram negative for pulmonary embolism (PE). 4. Hypoglycemia. Unknown etiology. Possible secondary to poor oral intake in the setting of home sulfonylurea intake. Hypoglycemic workup has been ordered. insulin as per protocol A1c is appreciated. improved 5. History of COPD. Patient currently not having any wheeze. CT scan appreciated. Supportive care. Nebulizer treatment as needed. 6. Hypertension. Patient currently borderline blood pressure. lisinopril. Patient on Lasix. Monitor blood pressure. Adjust as needed. 7. Depression. Continue current medication. 8. Diabetes with hypoglycemia. Holding oral medications. Insulin via protocol. Follow fingersticks. 9. Hypothyroidism. Continue Synthroid. Thyroid stimulating hormone (TSH) appreciated. 10. Obesity complicating care. 11. Lactic acidosis. Likely secondary to CHF. Will monitor closely. resolved 12. Deep venous thrombosis (DVT) prophylaxis. Lovenox subcutaneously. DISPOSITION: Pending clinical improvement, cardiology consultation, PT VS,Fishbone, I+O VS, Fishbone, I+O Laboratory Tests 09/21/18 04:45 Red Blood Count 4.47, Mean Corpuscular Volume 82.3, Mean Corpuscular Hemoglobin 25.7 L, Mean Corpuscular Hemoglobin Concent 31.3 L, Red Cell Distribution Width 19.5 H, Calcium Level 8.1 L, Aspartate Amino Transf (AST/SGOT) 22, Alanine Aminotransferase (ALT/SGPT) 18, Alkaline Phosphatase 81, Total Bilirubin 0.9, Total Protein 5.9 L, Albumin 2.5 L Vital Signs Date Time Temp Pulse Resp B/P (MAP) Pulse Ox O2 Delivery O2 Flow Rate FiO2 09/21/18 16:00 4.0 09/21/18 16:00 98.0 98 20 110/70 (83) 90 High Flow Cannula 09/19/18 12:30 35 I&O- Last 24 Hours up to 6 AM 09/21/18 05:59 Intake Total 1540 ml Output Total 2650 ml Balance -1110 ml DEDRA NAPOLES MD Sep 21, 2018 18:24
[2018-09-21 20:00] VITALS: BP 100/57
[2018-09-21] MEDS: LISINOPRIL *2.5 MG* TAB PO SCH (21:00)
[2018-09-22] VITALS: BP 102/78
[2018-09-22] MEDS: IPRATROPIUM 0.5MG/ALBUTEROL 2.5MG INH SOL UD 3ML (DUONEB)(J7620) NEB SCH ×4 (02:00→20:00)
[2018-09-22 04:00] VITALS: BP 104/61
[2018-09-22] MEDS: LEVOTHYROXINE 100MCG TABLET (0.1MG) PO SCH (05:28)
[2018-09-22 05:51] LABS: HEMATOCRIT 38.7 % (36.0-47.0); MEAN CORPUSCULAR HEMOGLOBIN 25.9 pg (27.0-33.0); MEAN CORPUSCULAR VOLUME 83.4 fl (80.0-96.0); PLATELET COUNT, AUTOMATED 205 10^3/uL (150-450); RED BLOOD COUNT 4.64 10^6/uL (4.00-5.40); WHITE BLOOD COUNT 9.3 10^3/uL (4.0-10.0)
[2018-09-22 06:03] LABS: ALBUMIN 2.7 GM/DL (3.2-5.2); ALT/SGPT 21 U/L (12-78); BILIRUBIN,TOTAL 1.2 MG/DL (0.2-1.0); BLOOD UREA NITROGEN 16 MG/DL (7-18); CALCIUM LEVEL 8.3 MG/DL (8.8-10.2); CARBON DIOXIDE LEVEL 30 MEQ/L (21-32); CHLORIDE LEVEL 96 MEQ/L (98-107); CREATININE FOR GFR 0.95 MG/DL (0.55-1.30); GLOMERULAR FILTRATION RATE > 60.0 (>39); GLUCOSE, FASTING 84 MG/DL (70-100); MAGNESIUM LEVEL 1.6 MG/DL (1.8-2.4); SODIUM LEVEL 132 MEQ/L (136-145); TOTAL PROTEIN 6.3 GM/DL (6.4-8.2)
[2018-09-22] MEDS ORDERED: MAG SULF 1GM/100ML (MAG RUN) 1 GM in APPROPRIATE DILUENT 1 EA IV ONE (06:45)
[2018-09-22] MEDS: HumaLOG INSULIN (NovoLOG) PER UNIT SC SCH ×4 (07:30→20:50)
[2018-09-22] MEDS: SYMBICORT 80/4.5MCG INHALER 6GM INH SCH ×2 (07:46→21:36)
[2018-09-22 08:52] VITALS: BP 107/74
--- NOTE | 2018-09-22 08:52 | IPN ---
DATE: 09/22/2018 Mrs. Deras tells me that she is feeling about the same. She still gets short of breath with minimal activity, but she was able to sleep and did not have any paroxysmal nocturnal dyspnea (PND). Her telemetry monitoring revealed episode of an 8 beat run of nonsustained ventricular tachycardia yesterday afternoon. Unfortunately, she did not get her evening dose of lisinopril because her blood pressure was too soft. Vital signs this morning blood pressure 104/61, heart rate has been around 80s to low 100s. She is afebrile. Saturation this morning was only 84% on 4 liters of oxygen previously was 93% on 4 liters. When I saw her, she looked comfortable. I do not think she is that profoundly hypoxic. Weight documented 73.1 kg. Her fluid balance yesterday was documented negative 3 liters. She made about 3 liters of urine, but the input was clearly not properly documented. Weight 73.1. Her JVP does not look high. Lungs reveal still end inspiratory crackles throughout. They have the quality that I would suspect is due to fibrotic lung disease. I do not appreciate any wheezing or rhonchi. Heart exam reveals irregular rhythm. There is positive S4. I do not appreciate any distinct murmur. Abdomen is soft, nontender. There is minimal peripheral edema. LABORATORY DATA: Basic metabolic panel sodium 132, potassium 4.0, creatinine 0.9 and glucose 84, magnesium was 1.6 and already replaced. CBC hemoglobin 12, hematocrit 38, platelet count 205,000. ASSESSMENT/PLAN: Mrs. Deras is a 73-year-old female who came in with severe hypoglycemia and is found to have severe left ventricle systolic dysfunction with EF estimated around 30% with severe pulmonary hypertension. I am little uncomfortable letting the patient go home when she had nonsustained ventricular tachycardia just yesterday, and she is currently not on any medications addressing LV dysfunction. I do not appreciate much of volume overloaded state and consequently I do not believe that we need to diurese her too vigorously, but hopefully her blood pressure will be sufficiently high tonight to tolerate her lisinopril. I would be also tempted to give her at least small dose of beta anh because of VT and LV dysfunction. I would do not appreciate any wheezing on exam and so I will give her small dose of Toprol XL. Will keep the patient in the hospital at least another day and possibly even longer. I will ask for records from Dr. Nunes's office. NITESH
[2018-09-22] MEDS: PARoxetine 20 MG TAB PO SCH (09:05)
[2018-09-22] MEDS: PANTOPRAZOLE 40MG TAB (PROTONIX) PO SCH (09:05)
[2018-09-22] MEDS: ENOXAPARIN 40 MG/0.4 ML SYRINGE (J1650) SC SCH (09:06)
[2018-09-22] MEDS: MAGNESIUM CHLORIDE 64 MG TABCR (SLO MAG) PO SCH (09:06)
[2018-09-22] MEDS: FUROSEMIDE 40 MG/4 ML VIAL (J1940) IV SCH (09:06)
[2018-09-22] MEDS: ASPIRIN 81 MG ENTERIC TAB PO SCH (09:06)
[2018-09-22] MEDS: METOPROLOL SUCC *XL* 12.5MG PER 1/2 TAB (TopROL *XL*) PO SCH (10:28)
--- NOTE | 2018-09-22 14:01 | IPNPDOC ---
Text Note Date of Service The patient was seen on 09/22/18. NOTE Subjective: Patient states she feels well. Denies any shortness of breath or c hest pain. Physical therapy noted that the patient had increased oxygen requirements with ambulation yesterday. Objective: Vitals: (see below) General: No acute distress, laying comfortably in bed. HEENT: Moist mucous membranes. Neck: No JVD or lymphadenopathy Cardiac: RRR, No murmurs Pulm: Minimal coarse crackles at the bases b/l. No wheezing, rhonchi Abd: NT/ND + BS Ext: No edema or cyanosis Labs (see below) Assessment/Plan 1. Acute on chronic hypoxic respiratory failure secondary to new onset decompensated systolic heart failure EF of 30-35%. Patient with also right heart failure and cor pulmonale. CTA Chest negative for PE. Appreciate cardiology input. Cardiac enzymes trending down. On aspirin. Lisinopril added by cardiology however her blood pressure was soft yesterday, and patient did not receive it. Continue diuresis. 2. Nonsustained ventricular tachycardia- asymptomatic. Cardiology has added low- dose beta anh. Appreciate cardiac output. Continue to monitor on telemetry. 3. History of COPD stable. Continue nebs. 4. Hypertension controlled. Patient was soft blood pressure yesterday. Continue to monitor. 5. History of depression continue current meds 6. Diabetes mellitus hold by mouth meds./Scale insulin. 7. Hypothyroidism on Synthroid 8. Obesity complicated care DVT prophy: Lovenox subcutaneous Physical therapy on consult. Pending cardiology and physical therapy clearance. VS,Fishbone, I+O VS, Fishbone, I+O Laboratory Tests 09/22/18 05:30 Red Blood Count 4.64, Mean Corpuscular Volume 83.4, Mean Corpuscular Hemoglobin 25.9 L, Mean Corpuscular Hemoglobin Concent 31.0 L, Red Cell Distribution Width 19.8 H, Calcium Level 8.3 L, Aspartate Amino Transf (AST/SGOT) 23, Alanine Aminotransferase (ALT/SGPT) 21, Alkaline Phosphatase 86, Total Bilirubin 1.2 H, Total Protein 6.3 L, Albumin 2.7 L Vital Signs Date Time Temp Pulse Resp B/P (MAP) Pulse Ox O2 Delivery O2 Flow Rate FiO2 09/22/18 10:28 80 120/88 09/22/18 08:00 98.1 18 84 High Flow Cannula 4.0 09/19/18 12:30 35 I&O- Last 24 Hours up to 6 AM 09/22/18 06:00 Intake Total 480 ml Output Total 3450 ml Balance -2970 ml MARJORIE MCKEON MD Sep 22, 2018 14:01
--- NOTE | 2018-09-22 15:36 | ECGEPIP ---
Stationary ECG Study [facility] Test Date: 2018-09-22 Pat Name: VITOR BRAND Department: Room: [place] [address] Gender: F [employer]oc[employer] Education Teacher: MANDO : 1945 Requested By: Britni Breaux Order Number: [id number] Reading MD: Barney Lala Measurements Intervals Marceline Rate: 92 P: 74 ND: 153 QRS: 97 QRSD: 99 T: 65 QT: 386 QTc: 480 Interpretive Statements SINUS RHYTHM POSSIBLE LEFT ATRIAL ENLARGEMENT BORDERLINE RIGHT AXIS DEVIATION LOW QRS VOLTAGE IN PRECORDIAL LEADS INCOMPLETE RIGHT BUNDLE BRANCH BLOCK Nonspecific ST-T abnormalities. Electronically Signed On 09-22-2018 15:36:42 EST by Barney Lala
[2018-09-22 16:00] VITALS: BP 84/60
[2018-09-22 20:00] VITALS: BP 96/68
[2018-09-22] MEDS: LISINOPRIL *2.5 MG* TAB PO SCH (20:49)
[2018-09-23] VITALS (9 sets, daily range): BP systolic 100–120; BP diastolic 56–76
[2018-09-23 00:06] LABS: INSULIN LEVEL 19.2 uIU/mL (2.6-24.9)
[2018-09-23] MEDS: IPRATROPIUM 0.5MG/ALBUTEROL 2.5MG INH SOL UD 3ML (DUONEB)(J7620) NEB SCH ×4 (02:19→20:00)
[2018-09-23 05:54] LABS: HEMATOCRIT 41.2 % (36.0-47.0); HEMOGLOBIN 12.7 g/dl (12.0-15.5); MEAN CORPUSCULAR HEMOGLOBIN 26.1 pg (27.0-33.0); MEAN CORPUSCULAR HGB CONC 30.8 g/dl (32.0-36.5); MEAN CORPUSCULAR VOLUME 84.8 fl (80.0-96.0); PLATELET COUNT, AUTOMATED 207 10^3/uL (150-450); RED BLOOD COUNT 4.86 10^6/uL (4.00-5.40); WHITE BLOOD COUNT 10.8 10^3/uL (4.0-10.0)
[2018-09-23] MEDS: LEVOTHYROXINE 100MCG TABLET (0.1MG) PO SCH (05:59)
[2018-09-23 06:15] LABS: ALBUMIN 2.7 GM/DL (3.2-5.2); BILIRUBIN,TOTAL 2.1 MG/DL (0.2-1.0); CALCIUM LEVEL 8.3 MG/DL (8.8-10.2); CREATININE FOR GFR 1.2 MG/DL (0.55-1.30); GLOMERULAR FILTRATION RATE 46.8 (>39); MAGNESIUM LEVEL 1.8 MG/DL (1.8-2.4); POTASSIUM SERUM 3.8 MEQ/L (3.5-5.1); TOTAL PROTEIN 6.1 GM/DL (6.4-8.2)
[2018-09-23] MEDS: HumaLOG INSULIN (NovoLOG) PER UNIT SC SCH ×4 (07:30→20:29)
[2018-09-23] MEDS: ENOXAPARIN 40 MG/0.4 ML SYRINGE (J1650) SC SCH (08:16)
[2018-09-23] MEDS: PANTOPRAZOLE 40MG TAB (PROTONIX) PO SCH (08:16)
[2018-09-23] MEDS: PARoxetine 20 MG TAB PO SCH (08:16)
[2018-09-23] MEDS: ASPIRIN 81 MG ENTERIC TAB PO SCH (08:16)
[2018-09-23] MEDS: MAGNESIUM CHLORIDE 64 MG TABCR (SLO MAG) PO SCH (08:16)
[2018-09-23] MEDS: FUROSEMIDE 40 MG/4 ML VIAL (J1940) IV SCH (08:16)
[2018-09-23] MEDS: METOPROLOL SUCC *XL* 12.5MG PER 1/2 TAB (TopROL *XL*) PO SCH (08:17)
[2018-09-23] MEDS: SYMBICORT 80/4.5MCG INHALER 6GM INH SCH ×2 (08:49→20:43)
--- NOTE | 2018-09-23 12:12 | IPNPDOC ---
Text Note Date of Service The patient was seen on 09/23/18. NOTE Subjective: Patient denies chest pain or palpitations. No dyspnea however her oxygen saturation does drop with ambulation. Have discussed the case with Mc. Nata notes that the patient's EF on heart catheterization in 2018 was 50-55%, and the reason this was done was because she was thought to have systolic heart failure. In light of these findings, Dr Breaux recommends discontinuing lisinopril, and he agrees with the further diuresing patient. Objective: Vitals: (see below) General: No acute distress, laying comfortably in bed. HEENT: Moist mucous membranes. Neck: No JVD or lymphadenopathy Cardiac: RRR, No murmurs Pulm: Minimal coarse crackles at the bases b/l. No wheezing, rhonchi Abd: NT/ND + BS Ext: 1-2+ pitting edema BLE. No cyanosis Labs (see below) Assessment/Plan 1. Acute on chronic hypoxic respiratory failure secondary to new onset decompensated systolic heart failure EF of 30-35% on echocardiogram on this admission. I have spoken with Dr Breaux, who notes that heart catheterization in 2018 and in fact noted a preserved ejection fraction, and will treat as such. Recommendations for discontinuing lisinopril. Patient with also right heart failure and cor pulmonale. CTA Chest negative for PE. Appreciate cardiology input. Cardiac enzymes trending down. On aspirin. Lisinopril added by cardiology however her blood pressure was soft yesterday, and patient did not receive it. Continue diuresis, will increase frequency of Lasix. 2. Nonsustained ventricular tachycardia- asymptomatic. Cardiology has added low- dose beta anh. Appreciate cardiac output. Continue to monitor on telemetry. 3. History of COPD stable. Continue nebs. 4. Hypertension controlled. Patient was soft blood pressure yesterday. Continue to monitor. 5. History of depression continue current meds 6. Diabetes mellitus hold by mouth meds./Scale insulin. 7. Hypothyroidism on Synthroid 8. Obesity complicated care 9. Severe TR/Pulm HTN complicating care. DVT prophy: Lovenox subcutaneous Patient's prognosis is guarded this patient does have right heart failure with severe PA systolic pressure. 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 Physical therapy on consult. Pending cardiology and physical therapy clearance. Update: at approx 2:30pm, nurse called noting that pt is nauseous. Pt was also dry heaving. Pt denied CP/Palpitations. No Abd pain. Stat labs, ekg, CXR ordered. Given lactic acid 6, elevated Cr, elevated LFTs. Pt started on broad spectrum Abx. Bld cx sent. MRCP pending. Discussed with Dr. Turcios who recommends holding Lasix until tomorrow. Believes this is likely cardiorenal. Urine lites pending. Nephrology consulted. In the afternoon, pt had fine crackles, with minimal to no LE edema. At approx 9pm, MRCP Notes large gallstone, gallbladder wall thickening, however no common bile duct dilation. Discussed with Dr. Toussaint who does not recommend ERCP, but rather cont current Abx, and repeating labs in am, as well as surgery consult. I have discussed case with Dr. Turcios, who has seen patient this evening, and at this time, the patient does not appear to be volume overloaded. As such, he rec ommends NS 50cc/hr as this picture likely represents a septic picture and the patient is dry at this time. Discussed with Dr. Kowalski, who recommends continues antibiotics, ?HIDA in am if symptoms do not improve to r/o cholecystitis given gallbladder wall thickening, and will be consult. Overall prognosis guarded. VS,Fishbone, I+O VS, Fishbone, I+O Laboratory Tests 09/23/18 05:12 Red Blood Count 4.86, Mean Corpuscular Volume 84.8, Mean Corpuscular Hemoglobin 26.1 L, Mean Corpuscular Hemoglobin Concent 30.8 L, Red Cell Distribution Width 19.7 H, Calcium Level 8.3 L, Aspartate Amino Transf (AST/SGOT) 63 H, Alanine Aminotransferase (ALT/SGPT) 47, Alkaline Phosphatase 91, Total Bilirubin 2.1 #H, Total Protein 6.1 L, Albumin 2.7 L Vital Signs Date Time Temp Pulse Resp B/P (MAP) Pulse Ox O2 Delivery O2 Flow Rate FiO2 09/23/18 08:17 70 120/76 09/23/18 08:00 96.8 20 92 High Flow Cannula 4.0 09/19/18 12:30 35 I&O- Last 24 Hours up to 6 AM 09/23/18 06:00 Intake Total 1140 ml Output Total 2650 ml Balance -1510 ml MARJORIE MCKEON MD Sep 23, 2018 12:12
[2018-09-23] MEDS ORDERED: FUROSEMIDE 40 MG/4 ML VIAL (J1940) IV ONE (13:00)
[2018-09-23] MEDS: ONDANSETRON 4MG/2ML VIAL (J2405) IV SCH ×2 (14:48→20:29)
[2018-09-23 15:02] LABS: ABG BASE EXCESS -3.1 (-2.0-2.0); ABG HCO3 20.3 MEQ/L (22.0-26.0); ABG O2 SATURATION 91.2 % (95.0-99.0); ABG PARTIAL PRESSURE CO2 31.5 mmHg (35.0-45.0); ABG PARTIAL PRESSURE O2 65.7 mmHg (75.0-100.0); ABG STANDARD HCO3 21.8 MEQ/L (22.0-26.0); ABG TOTAL CO2 21.2 MEQ/L (23.0-31.0); ABG pH (ARTERIAL) 7.426 UNITS (7.350-7.450)
[2018-09-23 15:19] LABS: BASO # 0.1 10^3/uL (0.0-0.2); BASO % 0.7 % (0.0-1.0); EOS # 0.1 10^3/uL (0.0-0.50); EOS % 0.6 % (0.0-3.0); HEMATOCRIT 44.8 % (36.0-47.0); HEMOGLOBIN 13.9 g/dl (12.0-15.5); MEAN CORPUSCULAR HEMOGLOBIN 26.2 pg (27.0-33.0); MEAN CORPUSCULAR VOLUME 84.4 fl (80.0-96.0); MONO # 1.1 10^3/uL (0.0-0.8); MONO % 10.3 % (0.0-5.0); NEUTROPHILS # 7.7 10^3/uL (1.8-7.7); NEUTROPHILS % 69.8 % (36.0-66.0); PLATELET COUNT, AUTOMATED 196 10^3/uL (150-450); RED BLOOD COUNT 5.31 10^6/uL (4.00-5.40)
--- NOTE | 2018-09-23 15:46 | REP ---
Chest one-view HISTORY: Shortness of breath Comparison: 09/18/2018 A diffuse increase in interstitial markings is present in the lungs. Patchy density is present in the the left lower lobe. The cardiac silhouette is enlarged. The pulmonary vasculature is prominent. Impression: There is a diffuse increase in interstitial markings in the lungs. This may represent interstitial edema pneumonia or chronic interstitial fibrosis. There is new patchy density in the left lower lobe consistent with atelectasis or infiltrate. Electronically Signed by Andrew Burgos MD 09/23/2018 03:38 P
[2018-09-23 15:51] LABS: BILIRUBIN,TOTAL 3.1 MG/DL (0.2-1.0); C REACTIVE PROTEIN QUANTITATIV 1.82 MG/DL (0.00-0.30); CALCIUM LEVEL 8.8 MG/DL (8.8-10.2); CREATININE FOR GFR 1.49 MG/DL (0.55-1.30); GLOMERULAR FILTRATION RATE 36.4 (>39); MAGNESIUM LEVEL 1.8 MG/DL (1.8-2.4); MB/CK RELATIVE INDEX 5.51 (< OR =4); TROPONIN I 0.06 NG/ML (< 0.10)
--- NOTE | 2018-09-23 16:22 | REP ---
CT chest without contrast: History: Short of breath. Question infiltrate. Comparison study September 19, 2018. Comparison is made with today's chest x-ray. Findings: The patient is rotated to the left. There is advanced emphysematous change. There are extensive areas of subpleural fibrosis and honeycombing in the lung bases bilaterally, left more so than right. No superimposed infiltrate is appreciated. There is minimal pericardial fluid and there is a small quantity of upper abdominal ascites adjacent to the liver and the spleen. The ascites is a new finding compared with the 19 September 2018 study. No hilar or mediastinal mass or adenopathy is seen. Cardiomegaly is observed. A small sliding-type hiatal hernia is seen. Vascular calcification is noted. Impression: Advanced COPD with bilateral lower lobe pulmonary fibrosis and honeycombing, unchanged from most recent prior study and most pronounced on the left. Hiatal hernia. Cardiomegaly. Small pericardial effusion and mild upper abdominal ascites visible. The latter finding is new when compared with the September 19, 2018 study. Electronically Signed by Mitchell Rosenberg MD 09/23/2018 05:56 P
[2018-09-23] MEDS: PIPERACILLIN/TAZOBACTAM SOD 2.25 GM in D5W MINI-BAG PLUS 50 ML IV SCH ×2 (16:58→23:17)
[2018-09-23] MEDS ORDERED: VANCOMYCIN HCL 1,000 MG, VIAL MATE ADAPTER 1 EACH in D5W 250 ML IV ONE (18:00)
[2018-09-23] MEDS ORDERED: VANCOMYCIN HCL 500 MG in D5W MINI-BAG PLUS 100 ML IV ONE (19:00)
--- NOTE | 2018-09-23 19:36 | REPVR ---
EXAM: US Duplex Artery and Vein of the Abdominal and/or Reproductive Organs, Complete EXAM DATE/TIME: 09/23/2018 6:44 PM CLINICAL HISTORY: 73 years old, female; Condition or disease; Other: Chf; Additional info: ? Portal vein thrombosis TECHNIQUE: Real-time duplex ultrasound scan of the arterial and venous flow of the abdominal and/or reproductive organs with B-mode, color Doppler flow and spectral waveform analysis. Complete exam. COMPARISON: No relevant prior studies available. FINDINGS: Limitations: This examination is severely limited due to bowel gas and patient's inability to hold breath. Portal venous: The main portal vein measures 14.1 mm in diameter. There is bidirectional flow throughout the entire portal venous system. No portal vein thrombosis identified. Hepatic veins: Triphasic waveforms are seen in the hepatic veins which are patent. Inferior vena cava: Not adequately visualized. Aorta: The proximal and mid abdominal aorta diameter is normal measuring 2.8 cm and 2.0 cm respectively. The distal abdominal aorta is not visualized secondary to overlying bowel gas. Liver: The liver appears diminutive in size and has a slightly heterogeneous echogenicity and lobulated surface contour suggestive of hepatic cirrhosis. No focal hepatic mass. No intrahepatic duct dilatation. Gallbladder: There is a non-mobile stone measuring 2.7 cm within the gallbladder. Mild nonspecific gallbladder wall thickening measuring 4.9 mm is present. This may be secondary to incomplete gallbladder distention. No gallbladder wall striation or significant pericholecystic fluid is identified. Common bile duct: The common bile duct is normal in caliber measuring 5.6 mm. Spleen: No focal splenic lesion or splenomegaly is identified. Pancreas: There is limited evaluation of the pancreas secondary to bowel gas. No focal pancreatic lesion or duct dilatation is identified. Right kidney: The right kidney is normal in size, shape and echotexture. It measures 8.8 cm in length. No right hydronephrosis. Left kidney: The left kidney is normal in size, shape and echotexture. It measures 9.9 cm in length. There are 2 cysts measuring 22 mm and 20 mm respectively within the upper pole. Intraperitoneal space: There is trace ascites in the right and left diaphragm. IMPRESSION: 1. Exam severely limited due to overlying bowel gas and patient's inability to hold breath. 2. Cholelithiasis. 3. Findings suggestive of hepatic cirrhosis. 4. No portal vein thrombosis. 5. Trace ascites. 6. Left renal cysts. Electronically signed by: Josemanuel Rojas On 09/23/2018 19:36:38 PM
--- NOTE | 2018-09-23 20:04 | REP ---
MRCP: Limited MRCP exam is accomplished utilizing multiple heavy T3 weighted sequences with axial and coronal planes. MIP reconstruction images are performed. Multiple attempts are made to obtain optimal scans but the study is limited due to patient motion. Despite the limitations of the scan there is a large gallstone seen in the dependant portion of the gallbladder measuring 2.4 cm in maximum diameter. The gallbladder wall is diffusely edematous. There is no evidence of intrahepatic or extrahepatic biliary dilatation. Maximum common bile duct diameter is approximately 5 mm. There is no definite evidence of choledocholithiasis. The pancreatic duct is not dilated. There is very mild scattered upper abdominal ascites present. The visualized portions of the liver, spleen, adrenals and pancreas are grossly unremarkable. Two adjacent cysts are seen in the upper pole of the left kidney measuring up to 2 cm in diameter. IMPRESSION: Large gallstone in the gallbladder 2.4 cm in diameter. Gallbladder is mild to moderately distended with diffuse gallbladder wall edema. No evidence of biliary dilatation or choledocholithiasis. Trace upper abdominal ascites diffusely. Electronically Signed by Mono Sheikh MD 09/23/2018 08:12 P
--- NOTE | 2018-09-23 20:18 | IPN ---
DATE: 09/23/2018 I saw Mrs. Deras during my rounds this morning. She told me that she was about the same. She still gets short of breath with fairly mild activity but is comfortable at rest. She did not have any episodes of nonsustained ventricular tachycardia yesterday. Vital signs: This morning blood pressure 102/58, heart rate was in 80s, saturation was 91% on 4 liters of oxygen by nasal cannula. She was alert, oriented, and appropriate. Her jugular venous pulse (JVP) did not look grossly elevated even though it was somewhat difficult to assess. Lungs still had some mild end-inspiratory fine crackles, consistent with fibrotic lung disease, but they seemed to be mildly improved compared to before. Heart exam: Regular rhythm. I do not appreciate any gallop. There is faint murmur just left from the sternum. Abdomen is obese and no obvious shifting dullness. No tenderness. Extremities have mild edema. Neurologically, she was intact. LABORATORIES: Hemoglobin 13.9, hematocrit 44, platelet count 196,000. Basic metabolic panel: Sodium 129, potassium 4.0, BUN 23, creatinine 1.5, and glucose 127 We were able to receive records from Dr. Nunes's office. It turns out that the patient underwent coronary angiography and right-sided heart catheterization in December 2017. It revealed surprisingly preserved left ventricular systolic function and normal left ventricular end-diastolic pressure (LVEDP). There was at least moderate pulmonary hypertension. There was no coronary artery disease. In view of these findings, it seems likely that the patient's congestive heart failure is principally right-sided in nature and likely a consequence of underlying lung disease. At this point, unfortunately, there is very little we can to contribute medically. It unfortunately also indicates a rather poor prognosis. In this setting, the obvious benefit of angiotensin-converting enzyme (MARYJANE) inhibitors is no longer present, and I am going to discontinue the lisinopril as per my discussion with attending physician earlier today. I still would consider continuing beta anh in very low dose because of her nonsustained ventricular tachycardia (VT), but it is obviously depending on tolerance. Unfortunately, I do not foresee that there will be much that I can contribute to her care.
[2018-09-23 20:22] LABS: APPEARANCE, URINE CLEAR (CLEAR); BACTERIA, URINE AUTO NEGATIVE (NEGATIVE); BILIRUBIN, URINE AUTO NEGATIVE (NEGATIVE); BLOOD, URINE BLOOD NEGATIVE (NEGATIVE); COLOR, URINE YELLOW (YELLOW); GLUCOSE, URINE (UA) AUTO NEGATIVE (NEGATIVE); KETONE, URINE AUTO NEGATIVE (NEGATIVE); LEUKOCYTE ESTERASE, URINE AUTO NEGATIVE (NEGATIVE); MUCUS, URINE SMALL (NEGATIVE); NITRITE, URINE AUTO NEGATIVE (NEGATIVE); PROTEIN, URINE AUTO NEGATIVE (NEGATIVE); RBC, URINE AUTO 0 /HPF (0-3); SPECIFIC GRAVITY URINE AUTO 1.009 (1.002-1.035); SQUAMOUS EPITHELIAL CELL UR AU 0 /HPF (0-6); WBC, URINE AUTO 1 /HPF (0-3)
[2018-09-23 20:26] LABS: BASO # 0.1 10^3/uL (0.0-0.2); BASO % 0.6 % (0.0-1.0); EOS % 0.2 % (0.0-3.0); HEMATOCRIT 44.7 % (36.0-47.0); HEMOGLOBIN 13.7 g/dl (12.0-15.5); LYMPH # 1.9 10^3/uL (1.5-4.5); MEAN CORPUSCULAR HEMOGLOBIN 26.1 pg (27.0-33.0); MEAN CORPUSCULAR HGB CONC 30.6 g/dl (32.0-36.5); MEAN CORPUSCULAR VOLUME 85.1 fl (80.0-96.0); MONO # 1.5 10^3/uL (0.0-0.8); MONO % 11.7 % (0.0-5.0); NEUTROPHILS # 9.2 10^3/uL (1.8-7.7); NEUTROPHILS % 71.9 % (36.0-66.0); PLATELET COUNT, AUTOMATED 133 10^3/uL (150-450); RED BLOOD COUNT 5.25 10^6/uL (4.00-5.40); WHITE BLOOD COUNT 12.9 10^3/uL (4.0-10.0)
[2018-09-23 20:48] LABS: CHLORIDE,RANDOM URINE 61 MEQ/L; CREATININE,RANDOM URINE 56.8 MG/DL; SODIUM,RANDOM URINE 33 MEQ/L
[2018-09-23 20:55] LABS: ALBUMIN 2.9 GM/DL (3.2-5.2); BILIRUBIN,TOTAL 3.6 MG/DL (0.2-1.0); CALCIUM LEVEL 8.5 MG/DL (8.8-10.2); CREATININE FOR GFR 1.63 MG/DL (0.55-1.30); GLOMERULAR FILTRATION RATE 32.8 (>39); MB/CK RELATIVE INDEX 4.62 (< OR =4); POTASSIUM SERUM 4.5 MEQ/L (3.5-5.1); TOTAL PROTEIN 6.6 GM/DL (6.4-8.2); TROPONIN I 0.09 NG/ML (< 0.10)
[2018-09-23] MEDS ORDERED: FUROSEMIDE 40 MG/4 ML VIAL (J1940) IV SCH (21:00)
[2018-09-23] MEDS ORDERED: NS 1,000 ML IV SCH (21:30)
--- NOTE | 2018-09-23 22:08 | PHACANCOPD ---
PHARMACY VANCOMYCIN DOSING Pt Demographics Demographics Patient Age:73 , Weight:73.000 , Gender: female Adjusted Body Weight Events Past 24 Hours Events Past 24 Hours: NO: Dialysis, Diuretic Therapy, Change in CrCl, Fever, Elevation in WBC, Pending Diagnostics, Pending Procedures, Other Vancomycin Vancomycin indication: SEPSIS Vancomycin Target Ranges: 15-20 mcg/ml Vancomycin Load Y/N: Yes Load Dose Date Time Vancomycin Load Dose: 1.5GM Date: 09/23/17 Time: 20:30 Vancomycin Dose Date: 09/24/18. Current Vancomycin Dose: [1GM IV Q24H (08:00)] Intermittent Dosing?: No Labs Labs Laboratory Tests 09/23/18 05:12 Red Blood Count 4.86, Mean Corpuscular Volume 84.8, Mean Corpuscular Hemoglobin 26.1 L, Mean Corpuscular Hemoglobin Concent 30.8 L, Red Cell Distribution Width 19.7 H, Calcium Level 8.3 L, Aspartate Amino Transf (AST/SGOT) 63 H, Alanine Aminotransferase (ALT/SGPT) 47, Alkaline Phosphatase 91, Total Bilirubin 2.1 #H, Total Protein 6.1 L, Albumin 2.7 L 09/23/18 14:48 Red Blood Count 5.31, Mean Corpuscular Volume 84.4, Mean Corpuscular Hemoglobin 26.2 L, Mean Corpuscular Hemoglobin Concent 31.0 L, Red Cell Distribution Width 20.2 H, Calcium Level 8.8, Aspartate Amino Transf (AST/SGOT) 228 H, Alanine Aminotransferase (ALT/SGPT) 131 H, Alkaline Phosphatase 117, Total Bilirubin 3.1 H, Total Protein 7.0, Albumin 3.0 L, Neutrophils (%) (Auto) 69.8 H, Lymphocytes (%) (Auto) 18.0 L, Monocytes (%) (Auto) 10.3 H, Eosinophils (%) (Auto) 0.6, Basophils (%) (Auto) 0.7, Neutrophils # (Auto) 7.7, Lymphocytes # (Auto) 2.0, Monocytes # (Auto) 1.1 H, Eosinophils # (Auto) 0.1, Basophils # (Auto) 0.1, Total Creatine Kinase 69 09/23/18 20:18 Red Blood Count 5.25, Mean Corpuscular Volume 85.1, Mean Corpuscular Hemoglobin 26.1 L, Mean Corpuscular Hemoglobin Concent 30.6 L, Red Cell Distribution Width 19.8 H, Calcium Level 8.5 L, Aspartate Amino Transf (AST/SGOT) 685 H, Alanine Aminotransferase (ALT/SGPT) 376 H, Alkaline Phosphatase 105, Total Bilirubin 3.6 H, Total Protein 6.6, Albumin 2.9 L, Neutrophils (%) (Auto) 71.9 H, Lymphocytes (%) (Auto) 15.0 L, Monocytes (%) (Auto) 11.7 H, Eosinophils (%) (Auto) 0.2, Basophils (%) (Auto) 0.6, Neutrophils # (Auto) 9.2 H, Lymphocytes # (Auto) 1.9, Monocytes # (Auto) 1.5 H, Eosinophils # (Auto) 0.0, Basophils # (Auto) 0.1, Total Creatine Kinase 78 Micro Microbiology 09/23/18 Blood Culture, Received Pending 09/23/18 Blood Culture, Received Pending 09/19/18 Blood Culture - Preliminary, Resulted No Growth after 72 hours. All specime... 09/19/18 Blood Culture - Preliminary, Resulted No Growth after 72 hours. All specime... 09/19/18 Respiratory Virus Panel (PCR) ([facility]) - Final, Complete Creatinine Clearance Date:09/23/18. Creatinine Clearance: [35 ml/min]. Assessment and Plan Maintaining Current Dose?: Yes Reason for dose change: No Dose Change Pharmacist Note Pharmacist Note Date: 09/23/18. PharmD note: SEPSIS GOAL 15-20 mcg/ml VANCO 1.5GM LOAD 20:30 FOLLOWED BY VANCO 1GM IV Q24H STARTING 09/24/18 08:00 VANCO TROUGH WHEN AT [facility] Sep 23, 2018 22:08
[2018-09-24] VITALS (82 sets, daily range): BP systolic 63–188; BP diastolic 43–147; O2SAT 95
[2018-09-24] MEDS ORDERED: NS 100 ML IV ONE (01:00)
[2018-09-24] MEDS: IPRATROPIUM 0.5MG/ALBUTEROL 2.5MG INH SOL UD 3ML (DUONEB)(J7620) NEB SCH ×5 (02:00→21:30)
[2018-09-24] MEDS: NOREPINEPHRINE BITARTRATE 8 MG in D5W 492 ML IV SCH ×3 (02:00→21:07)
--- NOTE | 2018-09-24 02:47 | IPNPDOC ---
Date Seen The patient was seen on 09/24/18. Progress Note I was called to bedside at 2335 to asses the patient for her pressures were low. She was admitted for CHF exacerbation and recent echo ON 09/19/18 showed global hypokinesis w/ estimated LVSEF of 30-35%.It was reported it was difficult to get pressure at first but was it roughly around 78/59, her remaining of her vitals were stable. She was given a bolus of 100 mls of NS to see if her BP would responded to fluid but it did not. Physical exam showed left lower lobe crackles and b/l 2+ pitting edema in the LE. Tenderness on palpation of the abdomen left lower quadrant. There was no JVD and mucous membranes appeared dry and she appeared slightly icterus. Urine output since the start of shift was 200ml with a positive balance of positive 520ml. The patient was transfer to the ICU and Dr. Kowalski was called to come place a central line. She was started on Levophed to maintain a MAP >65 and it was recommend to have a HIDA scan in the AM per surgery. VS, I&O, 24H, [facility] Vital Signs/I&O Vital Signs Date Time Temp Pulse Resp B/P (MAP) Pulse Ox O2 Delivery O2 Flow Rate FiO2 09/24/18 02:00 97.7 80 24 79/48 94 Nasal Cannula 5.0 09/19/18 12:30 35 I&O- Last 24 Hours up to 6 AM 09/24/18 06:00 Intake Total 650 ml Output Total 1400 ml Balance -750 ml Laboratory Data 24H LABS Laboratory Tests 2 09/23/18 05:12: Nucleated Red Blood Cells % (auto) 0.0, Anion Gap 10, Glomerular Filtration Rate 46.8, Blood Urea Nitrogen 22H, Creatinine 1.20, Sodium Level 128L, Potassium Level 3.8, Chloride Level 91L, Carbon Dioxide Level 27, Calcium Level 8.3L, Aspartate Amino Transf (AST/SGOT) 63H, Alanine Aminotransferase (ALT/SGPT) 47, Alkaline Phosphatase 91, Total Bilirubin 2.1#H, Total Protein 6.1L, Albumin 2.7L, Magnesium Level 1.8, Albumin/Globulin Ratio 0.79L 09/23/18 11:47: Bedside Glucose (Misc Panel) 181H 09/23/18 14:48: Nucleated Red Blood Cells % (auto) 0.0, Anion Gap 15, Glomerular Filtration Rate 36.4L, Blood Urea Nitrogen 23H, Creatinine 1.49H, Sodium Level 129L, Potassium L evel 4.0, Chloride Level 94L, Carbon Dioxide Level 20L, Calcium Level 8.8, Aspartate Amino Transf (AST/SGOT) 228H, Alanine Aminotransferase (ALT/SGPT) 131H, Alkaline Phosphatase 117, Total Bilirubin 3.1H, Total Protein 7.0, Albumin 3.0L, Magnesium Level 1.8, Albumin/Globulin Ratio 0.75L, Immature Granulocyte % (Auto) 0.6, White Blood Count 11.0H, Red Blood Count 5.31, Hemoglobin 13.9, Hematocrit 44.8, Mean Corpuscular Volume 84.4, Mean Corpuscular Hemoglobin 26.2L, Mean Corpuscular Hemoglobin Concent 31.0L, Red Cell Distribution Width 20.2H, Platelet Count 196, Neutrophils (%) (Auto) 69.8H, Lymphocytes (%) (Auto) 18.0L, Monocytes (%) (Auto) 10.3H, Eosinophils (%) (Auto) 0.6, Basophils (%) (A uto) 0.7, Neutrophils # (Auto) 7.7, Lymphocytes # (Auto) 2.0, Monocytes # (Auto) 1.1H, Eosinophils # (Auto) 0.1, Basophils # (Auto) 0.1, Total Creatine Kinase 69, Creatine Kinase MB 4.0H, Creatine Kinase MB Relative Index 5.51H, Troponin I 0.06, C-Reactive Protein, Quantitative 1.82H 09/23/18 14:51: Blood Gas Bicarbonate Standard 21.8L, Arterial Blood pH 7.426, Arterial Blood P artial Pressure CO2 31.5L, Arterial Blood Partial Pressure O2 65.7L, Arterial Blood Total CO2 21.2L, Arterial Blood HCO3 20.3L, Arterial Blood Base Excess - 3.1L, Arterial Blood Oxygen Saturation 91.2L 09/23/18 15:01: Lactic Acid Level 6.4*H 09/23/18 17:06: Bedside Glucose (Misc Panel) 94 09/23/18 19:55: Bedside Glucose (Misc Panel) 101 09/23/18 20:06: Urine Appearance CLEAR, Urine Color YELLOW, Urine pH 6.0, Urine Specific [place] 1.009, Urine Protein NEGATIVE, Urine Glucose (UA) NEGATIVE, Urine Ketones NEGATIVE, Urine Urobilinogen 4.0H, Urine Bilirubin NEGATIVE, Urine Leukocyte Esterase NEGATIVE, Urine Blood NEGATIVE, Urine Nitrite NEGATIVE, Urine WBC (Auto) 1, Urine RBC (Auto) 0, Urine Hyaline Casts (Auto) 49, Urine Bacteria (Auto) NEGATIVE, Urine Squamous Epithelial Cells 0, Urine Mucus (Auto) SMALL, Urine Sperm (Auto) , Urine Random Creatinine 56.8, Urine Random Sodium 33, Urine Random Chloride 61 09/23/18 20:18: Immature Granulocyte % (Auto) 0.6, White Blood Count 12.9H, Red Blood Count 5.25, Hemoglobin 13.7, Hematocrit 44.7, Mean Corpuscular Volume 85.1, Mean Corpuscular Hemoglobin 26.1L, Mean Corpuscular Hemoglobin Concent 30.6L, Red Cell Distribution Width 19.8H, Platelet Count 133L, Neutrophils (%) (Auto) 71.9H, Lymphocytes (%) (Auto) 15.0L, Monocytes (%) (Auto) 11.7H, Eosinophils (%) (Auto) 0.2, Basophils (%) (Auto) 0.6, Neutrophils # (Auto) 9.2H, Lymphocytes # (Auto) 1.9, Monocytes # (Auto) 1.5H, Eosinophils # (Auto) 0.0, Basophils # (Auto) 0.1, Nucleated Red Blood Cells % (auto) 0.2H, Anion Gap 13, Glomerular Filtration Rate 32.8L, Lactic Acid Level 5.1*H, Blood Urea Nitrogen 28H, Creatinine 1.63H, Sodium Level 127L, Potassium Level 4.5, Chloride Level 90L, Carbon Dioxide Level 24, Calcium Level 8.5L, Aspartate Amino Transf (AST/SGOT) 685H, Alanine Aminotransferase (ALT/SGPT) 376H, Total Creatine Kinase 78, Alkaline Phosphatase 105, Total Bilirubin 3.6H, Total Protein 6.6, Albumin 2.9L, Creatine Kinase MB 4.0H, Creatine Kinase MB Relative Index 4.62H, Troponin I 0.09#, Albumin/Globulin Ratio 0.78L CBC/BMP Laboratory Tests 09/23/18 05:12 Red Blood Count 4.86, Mean Corpuscular Volume 84.8, Mean Corpuscular Hemoglobin 26.1 L, Mean Corpuscular Hemoglobin Concent 30.8 L, Red Cell Distribution Width 19.7 H, Calcium Level 8.3 L, Aspartate Amino Transf (AST/SGOT) 63 H, Alanine Aminotransferase (ALT/SGPT) 47, Alkaline Phosphatase 91, Total Bilirubin 2.1 #H, Total Protein 6.1 L, Albumin 2.7 L 09/23/18 14:48 Red Blood Count 5.31, Mean Corpuscular Volume 84.4, Mean Corpuscular Hemoglobin 26.2 L, Mean Corpuscular Hemoglobin Concent 31.0 L, Red Cell Distribution Width 20.2 H, Calcium Level 8.8, Aspartate Amino Transf (AST/SGOT) 228 H, Alanine Aminotransferase (ALT/SGPT) 131 H, Alkaline Phosphatase 117, Total Bilirubin 3.1 H, Total Protein 7.0, Albumin 3.0 L, Neutrophils (%) (Auto) 69.8 H, Lymphocytes (%) (Auto) 18.0 L, Monocytes (%) (Auto) 10.3 H, Eosinophils (%) (Auto) 0.6, Basophils (%) (Auto) 0.7, Neutrophils # (Auto) 7.7, Lymphocytes # (Auto) 2.0, Monocytes # (Auto) 1.1 H, Eosinophils # (Auto) 0.1, Basophils # (Auto) 0.1, Total Creatine Kinase 69 09/23/18 20:18 Red Blood Count 5.25, Mean Corpuscular Volume 85.1, Mean Corpuscular Hemoglobin 26.1 L, Mean Corpuscular Hemoglobin Concent 30.6 L, Red Cell Distribution Width 19.8 H, Calcium Level 8.5 L, Aspartate Amino Transf (AST/SGOT) 685 H, Alanine Aminotransferase (ALT/SGPT) 376 H, Alkaline Phosphatase 105, Total Bilirubin 3.6 H, Total Protein 6.6, Albumin 2.9 L, Neutrophils (%) (Auto) 71.9 H, Lymphocytes (%) (Auto) 15.0 L, Monocytes (%) (Auto) 11.7 H, Eosinophils (%) (Auto) 0.2, Basophils (%) (Auto) 0.6, Neutrophils # (Auto) 9.2 H, Lymphocytes # (Auto) 1.9, Monocytes # (Auto) 1.5 H, Eosinophils # (Auto) 0.0, Basophils # (Auto) 0.1, Total Creatine Kinase 78 Microbiology Microbiology 09/23/18 Blood Culture, Received Pending 09/23/18 Blood Culture, Received Pending 09/19/18 Blood Culture - Preliminary, Resulted No Growth after 72 hours. All specime... 09/19/18 Blood Culture - Preliminary, Resulted No Growth after 72 hours. All specime... 09/19/18 Respiratory Virus Panel (PCR) ([facility]) - Final, Complete GME ATTESTATION GME ATTESTATION My faculty preceptor for this patient encounter was physically present during the encounter and was fully available. All aspects of the patient interview, examination, medical decision making process, and medical care plan development were reviewed and approved by the faculty preceptor. The faculty preceptor is aware and concurs with the plan as stated in the body of this note and will attest to such by his/her cosignature. ATTENDING NOTE Attestation: I have supervised the medical front desk coordinator and discussed patients evaluation and medical management. I agree with the outlined management plan as documented in the residents note. AB GRAVES DO Sep 24, 2018 02:47 MARYBEL KO MD Sep 24, 2018 19:33
[2018-09-24 03:26] LABS: MB/CK RELATIVE INDEX 3.85 (< OR =4); TROPONIN I 0.09 NG/ML (< 0.10)
[2018-09-24] MEDS: ONDANSETRON 4MG/2ML VIAL (J2405) IV SCH (03:44)
[2018-09-24] MEDS: PIPERACILLIN/TAZOBACTAM SOD 2.25 GM in D5W MINI-BAG PLUS 50 ML IV SCH ×4 (04:07→23:33)
[2018-09-24 04:49] LABS: HEMATOCRIT 42.9 % (36.0-47.0); MEAN CORPUSCULAR HGB CONC 30.3 g/dl (32.0-36.5); MEAN CORPUSCULAR VOLUME 85.8 fl (80.0-96.0); WHITE BLOOD COUNT 26.1 10^3/uL (4.0-10.0)
[2018-09-24 04:58] LABS: INR 2.1
[2018-09-24 05:13] LABS: PLATELET COUNT, AUTOMATED 58 10^3/uL (150-450)
[2018-09-24] MEDS: LEVOTHYROXINE 100MCG TABLET (0.1MG) PO SCH (05:40)
[2018-09-24] MEDS ORDERED: ETOMIDATE INJ 20MG/10ML VIAL As Ordered ONE (05:47)
[2018-09-24] MEDS ORDERED: SUCCINYLCHOLINE INJ 200 MG/10 ML VIAL (J0330) As Ordered ONE (05:48)
[2018-09-24 06:13] LABS: ABG BASE EXCESS -16.8 (-2.0-2.0); ABG O2 SATURATION 15.6 % (95.0-99.0); ABG PARTIAL PRESSURE CO2 62.6 mmHg (35.0-45.0); ABG PARTIAL PRESSURE O2 22.8 mmHg (75.0-100.0); ABG STANDARD HCO3 10.7 MEQ/L (22.0-26.0); ABG TOTAL CO2 16.9 MEQ/L (23.0-31.0); ABG pH (ARTERIAL) 6.998 UNITS (7.350-7.450)
[2018-09-24 06:22] LABS: BILIRUBIN,TOTAL 5.3 MG/DL (0.2-1.0); CALCIUM LEVEL 8.7 MG/DL (8.8-10.2); GLOMERULAR FILTRATION RATE 25.9 (>39); MAGNESIUM LEVEL 2.1 MG/DL (1.8-2.4); POTASSIUM SERUM 5.2 MEQ/L (3.5-5.1); TOTAL PROTEIN 6.2 GM/DL (6.4-8.2)
[2018-09-24 06:54] LABS: ABG BASE EXCESS -21.3 (-2.0-2.0); ABG HCO3 7.6 MEQ/L (22.0-26.0); ABG PARTIAL PRESSURE CO2 27.3 mmHg (35.0-45.0); ABG PARTIAL PRESSURE O2 160.2 mmHg (75.0-100.0); ABG STANDARD HCO3 9.6 MEQ/L (22.0-26.0); ABG TOTAL CO2 8.5 MEQ/L (23.0-31.0); ABG pH (ARTERIAL) 7.064 UNITS (7.350-7.450)
[2018-09-24] MEDS ORDERED: EPINEPHrine 1MG/10ML SYRINGE 1.5IN IV STA (06:59)
[2018-09-24] MEDS ORDERED: SODIUM BICARBONATE 8.4% INJ 50 ML SYRINGE IV STA (06:59)
[2018-09-24] MEDS ORDERED: NS 1,000 ML IV ONE ×3 (07:00→10:00)
[2018-09-24] MEDS ORDERED: MORPHINE 4 MG/ML 1ML VIAL/SYRINGE (J2270) IV PRN (07:15)
[2018-09-24] MEDS ORDERED: VANCOMYCIN HCL 1,000 MG, VIAL MATE ADAPTER 1 EACH in D5W 250 ML IV SCH (08:00)
[2018-09-24] MEDS: VASOPRESSIN INJ 20 UNITS in NS 500 ML IV SCH (08:00)
[2018-09-24] MEDS ORDERED: MIDAZOLAM HCL 100 MG in D5W 80 ML IV SCH (08:00)
--- NOTE | 2018-09-24 08:03 | REP ---
Portable chest x-ray: Single view. 01:18 a.m. film. History: Central line placement. Findings: EKG electrodes are seen. Right internal jugular central venous line is seen in place with its tip in the expected location of the superior vena cava. Bibasilar interstitial fibrosis pattern is again seen much more prominent on the left than the right. Cardiomegaly is again observed. No new infiltrate. Electronically Signed by Mitchell Rosenberg MD 09/24/2018 07:54 A
--- NOTE | 2018-09-24 08:18 | REP ---
Portable chest x-ray: Single view. History: Respiratory failure. Comparison study: September 24, 2018. Findings: EKG monitoring electrodes are seen. An endotracheal tube has been passed into good position just below the level of proximal clavicles. A right internal jugular central venous line is again noted in place at the level of the superior vena cava. Moderate cardiac enlargement is observed. In a diffuse interstitial fibrosis pattern again seen left greater than right unchanged. No new infiltrate. Electronically Signed by Mitchell Rosenberg MD 09/24/2018 08:10 A
--- NOTE | 2018-09-24 08:20 | RO ---
DATE OF PROCEDURE: 09/24/2018 PREOPERATIVE DIAGNOSIS: Hypotension and shock. POSTPROCEDURE DIAGNOSIS: Hypotension and shock. PROCEDURE: Left femoral arterial line. SURGEON: Dr. Berger TRACTOR DRIVER: No assistants. ANESTHESIA: CONSENT: No consent was obtainable. It was deemed urgent as the patient was being resuscitated. Although son was attempted be contacted, he was not available by phone. At this point in time, she was full code and felt the procedure was urgent and deemed very necessary for her management. DESCRIPTION OF PROCEDURE: Left groin was prepped and draped in a sterile manner with chlorhexidine and full barrier precautions. The syringe was then guided into the femoral artery on the first pass, wire was fed through the needle and the needle was removed. The catheter was then fed over the wire and the wire was removed. There was return of pulsatile blood flow. This was attached to arterial monitoring with good wave form. This was sutured in place. There were no observed complications.
[2018-09-24] MEDS: MIDAZOLAM INJ 2 MG/2 ML VIAL (J2250) IV PRN ×6 (08:40→17:45)
[2018-09-24 09:00] LABS: AMYLASE 37 U/L (25-115); LIPASE 53 U/L (73-393)
--- NOTE | 2018-09-24 09:15 | CCN ---
CRITICAL CARE CONSULTATION: DATE OF SERVICE: 09/24/2018 CRITICAL CARE TIME: 2 hours. This excludes all procedures. I was called urgently to the patient's bed side this morning just before 6:00 a.m. for agonal breathing and hypotension. On my arrival, the patient was mottled, recently intubated, and without a measurable blood pressure. She was bradycardic. I then ordered a milligram of epinephrine which had minimal effect, then an amp of bicarbonate. After the amp of bicarbonate, heart rate patti, blood pressure was measurable but low. I then gave a liter of normal saline. ABG was ordered. Pulses were not palpable at radial or pedal locations, therefore, femoral attempt made appeared to be venous return. Venous blood gas showed a pH of 7.00, pCO2 63 with a pAO2 23. Due to the face that the blood pressure was difficult to obtain and patient had peripheral mottling, arterial line was placed in the left femoral artery. Looking back through the history, yesterday around 4-o'clock, the patient started to have nausea. This prompted repeat laboratory work which did show lactic acidosis. Unfortunately, I do not see where any fluid had been initiated, in fact, she actually had Lasix apparently sometime during the middle of the night. A central line was placed do to persistent hypotension and the patient was started on Levophed. I suspect there was concern given the severity of her systolic heart failure for giving IV fluids. Patient has been having nonsustained ventricular tachycardia (VT) and had significant amounts of nonsustained VT during my arrival and especially after epinephrine administration. After those interventions, patient remained agonal, has no purposeful movements. Is generating her own inspiratory effort. Cardiac: Regular S1, S2 with occasional ectopy. Heart rate of 95. Blood pressure is now 103/74 on vasopressin and Levophed. Pulse is 95, respiratory rate is 30oxygen saturation on 100% is not measurable through peripheral monitoring. Most recent blood gas, she had a pO2 of 160. Temperature 98.0. General: Patient unresponsive on mechanical ventilation. She is over-breathing the vent. She is using some abdominal accessory muscles to help her breath. HEENT: Pupils are dilated but reactive, approximately 8 mm. They are symmetric. Sclerae clear and icteric despite elevated bilirubin. Mucous membranes are moist. Tongue is midline. Neck is supple. No tracheal deviation. Some bruising around the right internal jugular (IJ). Lymphs: No cervical, supraclavicular or axillary adenopathy. Cardiac: Tachycardic. S1, S2 without audible, rub or gallop. I do auscultate a murmur heard best at the left lower sternal border, grade 2/6. This does not radiate to the carotids. Post of maximum impulse (PMI) is displaced laterally. Pulmonary: Clear to auscultation without rales, rhonchi, or wheezes. No accessory muscle use. Abdomen: Soft. No active bowel sounds. Nondistended. Extremities: Minimal to no edema. Significant mottling. Radial and pedal pulses are not palpable. Musculoskeletal: Consistent with stated age. No evidence of joint effusion or fracture. Neurologic: No posturing. No tremor. Laboratory evaluation: She has a sodium 126, potassium 5.2, chloride 89, bicarbonate 18, glucose 82. White blood cell count is 26, hemoglobin 13, hematocrit 42.9, platelet count is now down to 58, which is new. INR 2.1. Most recent blood gases: pH 7.06, pCO2 27, pO2 160. Chest CT was reviewed from 09/19/2018 and 09/23/2018 of the chest. 09/19/2018 showed some minimal vascular congestion. 09/23/2017 shows no significant vascular congestion. There is significant emphysema and pulmonary fibrosis. Significant cardiomegaly. Ultrasound of the right upper quadrant was limited to the findings of cirrhosis with cholelithiasis. No portal vein thrombosis but trace ascites. Abdominal MRI shows large cholelithiasis with a gallbladder of 2.4 cm in diameter with moderate distention of the gallbladder and gallbladder wall edema. No evidence of biliary dilatation or choledocholithiasis. Trace upper abdomen ascites was seen. EKG is still pending. Other laboratory evaluations that are pending is CVO2, ammonia is pending. IMPRESSION: 1. Respiratory failure from septic shock: Will continue on mechanical ventilation. Patient has multiple underlying comorbidities that will likely impair her ability to ventilate and be extubated including emphysema, pulmonary fibrosis and severe systolic heart failure. 2. Septic shock: IV fluids administrated. Lasix on hold. Currently on vasopressin therapy. Do not believe she has recently had any steroids, therefore, I think it is unlikely that she is adrenally insufficient. Unfortunately, I believe her sepsis and septic shock started yesterday with persistent lactic acidosis. Either that or she has bowel ischemia. The most likely source is gastrointestinal (GI) possible gallbladder, however, there is no evidence of ascending cholangitis. Biliary ducts do not appear dilated. Blood cultures are pending. Does not appear to be a pulmonary source. Patient is on antibiotics with vancomycin and Zosyn started yesterday. 3. Hyperbilirubinemia. 4. 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 5. Systolic heart failure, severe in nature with new decrease in ejection fraction to 30-35%. 6. Pulmonary hypertension from cor pulmonale. 7. Emphysema, pulmonary fibrosis. 8. Thrombocytopenia, likely from severity of sepsis, new onset. I have discontinued Lovenox. Thromboembolic deterrent stockings (TEDS) and Nakul's for deep venous thrombosis (DVT) prophylaxis, although INR is elevated likely due to hepatic impairment. 9. Acute renal injury: I expect patient to have acute renal failure and possibly need dialysis. She has had no urine output. 10. GI prophylaxis: Place the patient on IV Protonix. Overall, patient's prognosis remains extremely guarded due to the severity of her lung disease, heart disease, severity of septic shock, severe lactic acidosis, poor perfusion and near cardiac arrest. Family attempted to be updated. Dr. Crenshaw had called the son, who is the first contact multiple times with no response as of yet.
[2018-09-24] MEDS: PANTOPRAZOLE 40MG INJ (PROTONIX) (C9113) IV SCH (09:58)
[2018-09-24] MEDS: CHLORHEXIDINE GLUCONATE 0.12 % 15ML UDC (PERIDEX ORAL RINSE) MT SCH ×2 (09:58→21:06)
--- NOTE | 2018-09-24 10:26 | CR ---
DATE OF CONSULTATION: 09/24/2018 I was asked by the hospitalist to see the patient late last evening. They implied that it would be adequate to see the patient in the morning concerning possible cholecystitis issues. I was asked to see the patient for a central line in the middle of the night and thus, we made further evaluation concerning her abnormal liver function tests (LFTs). Unfortunately, she has had a very difficult hospitalization this time and has developed some significant liver function tests abnormalities that have gone up yesterday morning and then up again further yesterday with AST and ALT at 65 and 376. Bilirubin elevated, however, alkaline phosphatase was not elevated. The patient had imaging of abdominal MRI showing large gallstone with mild distention of the gallbladder with some gallbladder wall edema but otherwise no other significant choledocholithiasis common bile dilatation. However, also on her studies as well as her CT scan on admission, she has edema pretty much everywhere throughout all the subcutaneous tissues on both sides of her chest wall, etc., and peripheral edema. She is not complaining of any specific abdominal pain, per say, although has, when discussing this with the resident, she has had some left-sided abdominal pain and discomfort. She has not had any acholic stools. No bilirubinuria. However, she has developed some scleral icterus at this time. Her past medication history is significant for: History of congestive heart failure. History of chronic obstructive pulmonary disease (COPD). History of diabetes mellitus. Hypoglycemia. Lower extremity edema. History of oxygen dependent COPD. History of hypothyroidism Anxiety. Depression. Arthritis. Degenerative joint disease. Degenerative disc disease. There is no history of coronary artery disease, myocardial infarction, valvular disease, atrial fibrillation, cerebrovascular accident (CVA) or sudden cardiac issues. Her medications at home include: - metformin - losartan - glimepiride - levothyroxine - paroxetine - calcium - Lasix - potassium - albuterol - fish oil PHYSICAL EXAMINATION: Frail individual with shortness of breath, but is alert and awake with somewhat hypotensive at this time. Not complaining of any specific pain. However, she is tender when she is palpated. In the lower extremities, I can palpate her pitting edema, even pain throughout her abdomen, but it is discomfort that seems to go away after deeper palpation is appreciated. No specific right upper quadrant pain tenderness is appreciated. Lungs are clear anteriorly, however, she has some crackles posteriorly significantly. Heart is regular with multiple irregular beats. Abdomen is softly distended. Nontender except to mild palpation and it seems as though it is almost that she has some tenderness associated with the subcutaneous edema causing some discomfort. Nonspecific peritoneal signs. Extremities are cool. Somewhat cyanotic and have pitting edema. IMPRESSION AND PLAN: Patient has elevated liver function tests and my impression is that it is very unlikely that is acute cholecystitis causing this problem and probably related to her right heart failure. It is not unreasonable if she is stable to proceed with a HIDA scan and if this is positive, proceed with a percutaneous cholecystoscopy tube. But the edema she has here is consistent with the edema she has everywhere. Without significant tenderness, I am not convinced that this is a source of her lactic acidosis. At this point, unfortunately, she presents in as a nonoperative candidate and I would not recommend operative intervention for her. If we can proceed with some nonoperative drainage procedures, if necessary, that may be the next step for her.
--- NOTE | 2018-09-24 10:37 | RO ---
DATE OF PROCEDURE: 09/24/2018 PREOPERATIVE DIAGNOSIS: Need for intravenous access (hypotension query/hemodynamic monitoring. POSTOPERATIVE DIAGNOSIS: Need for intravenous access (hypotension query/hemodynamic monitoring. PROCEDURE: Ultrasound-guided right internal jugular central line catheter placement (nontunneled). SURGEON: Pradip Kowalski MD TRANSFER CAR OPERATOR: ANESTHESIA: Local. DESCRIPTION OF PROCEDURE: The patient was in the intensive care unit, was placed in Trendelenburg position. Ultrasound was performed of the right internal jugular (IJ) area and revealed a good compressible IJ. Once this was identified, local was placed over this area after being prepped and draped in sterile fashion and finder needle was placed into the vein. However, the needle was then placed in the vein and did not thread very well, and thus, the ultrasound was used to directly ascertain placement of the needle and this was followed into the right IJ as well as a wire followed in the right IJ. Then, the dilator was placed over the wire without difficulty. A catheter was placed at about [address] All ports aspirated and flushed easily without any problems. Dry sterile dressing was placed over the site. Postoperative chest x-ray revealed no evidence of pneumothorax and no evidence of hematoma, etc.
--- NOTE | 2018-09-24 11:28 | CCN ---
DATE: 09/24/2018 Update on the critical care note that is already been performed on today's date 09/24/2018. I spoke with the patient's son, updated him, Mr. Calin Deras on the current clinical condition of his mother. I explained to him that I felt that she was in septic shock likely from an abdominal source, possible bowel ischemia versus gallbladder. Amylase and lipase still pending. We did discuss advanced directives. At this point in time, he would like all efforts up until the point of cardiopulmonary resuscitation (CPR). He states he does not want any further CPR performed. Therefore, DO NOT RESUSCITATE was placed on the chart based on the son's wishes as he is her only child and she is not . I believe this is reasonable, especially given her age and comorbidities.
[2018-09-24 12:00] LABS: ABG BASE EXCESS -19.1 (-2.0-2.0); ABG HCO3 9.4 MEQ/L (22.0-26.0); ABG O2 SATURATION 93.9 % (95.0-99.0); ABG PARTIAL PRESSURE CO2 31.4 mmHg (35.0-45.0); ABG PARTIAL PRESSURE O2 93.1 mmHg (75.0-100.0); ABG STANDARD HCO3 10.6 MEQ/L (22.0-26.0); ABG TOTAL CO2 10.4 MEQ/L (23.0-31.0)
[2018-09-24 12:05] LABS: ABG pH (ARTERIAL) 7.096 UNITS (7.350-7.450)
[2018-09-24] MEDS: SODIUM BICARBONATE 150 MEQ in STERILE WATER LITER BAG 1,000 ML IV SCH ×2 (12:46→21:06)
--- NOTE | 2018-09-24 13:41 | CR ---
DATE OF CONSULTATION: 09/24/2018 This consult was requested on 09/23/2018 and I did come to see the patient in the afternoon, however, patient was in radiology at that time getting her abdominal MRI and Doppler studies done. I saw her this morning in the intensive care unit. Since yesterday, her condition deteriorated and she was transferred to the intensive care unit where she was intubate this morning and has been on pressors. She was admitted to [facility] on 09/19/2018 with progressive shortness of breath and increased lower extremity edema. Initial impression was congestive heart failure and an attempt was made to diurese her, however, her BUN and creatinine worsened due to which a nephrology consultation was requested yesterday. In the meantime, she has developed sepsis and had several imaging studies done yesterday, which included a chest CT scan, an abdominal MRI in addition to chest x-rays. Prior to this on 09/19/2018, she had a CT angiogram done to rule out any possibility of pulmonary embolism. She has a known history of diabetes and chronic obstructive pulmonary disease (COPD) at baseline. She was felt to have congestive heart failure. An echocardiogram was done during this admission, which was consistent with the possibility of diastolic congestive heart failure in addition to decreased ejection fraction of 30-35%. In any event, this morning, patient is on Levophed and has received large amounts of IV normal saline due to septic shock. She is not on the ventilator. PAST MEDICAL AND SURGICAL HISTORY SIGNIFICANT FOR: 1. History of COPD. 2. History of diabetes. 3. Congestive heart failure with ejection fraction of 30-35%. MEDICATIONS: Her homed medications included, 600 mg twice a day, furosemide 40 mg daily, glimepiride 2 mg twice a day, levothyroxine 100 mcg daily, losartan 100 mg daily, metformin 1000 mg twice a day, paroxetine 20 mg daily, potassium chloride 10 mEq twice a day and Joseph 3 500 mg daily in addition to DuoNebs. Medications in the hospital currently include Protonix intravenous 40 mg daily, vancomycin 1 gram every 24 hours, DuoNebs four times a day, vasopressin and Levophed infusions for hypotension, morphine 2 mg every 2 hours as needed for anxiety and agitation and Versed 2 mg as needed. She is also receiving Zosyn 2.25 grams every 6 hours, levothyroxine 100 mcg daily, IV fluids-normal saline. ALLERGIES: She has No known drug allergies. PERSONAL AND SOCIAL HISTORY: Not obtainable at present as the patient is intubated and unresponsive. FAMILY HISTORY: Noncontributory. REVIEW OF SYSTEMS: Not possible as patient is intubated and unresponsive. PHYSICAL EXAMINATION: She is an elderly female who is currently intubated and has a endotracheal and nasogastric tube in place. Temperature 98 degrees Fahrenheit, heart rate 100 per minute and respiratory rate 26 per minute on the ventilator. Blood pressure is about 97/60 mmHg on 100% oxygen. Head is atraumatic. Endotracheal tube is in place. Neck veins are difficult to be assessed. Heart sounds are tachycardic and lungs have good bilateral air entry. Abdomen is soft and bowel sounds are hypoactive. Extremities have no cyanosis or clubbing. She has a line in her left femoral area. LAB DATA: A lactic acid level this morning is 15.9, sodium 126, potassium 5.2, CO2 18, BUN 33, and creatinine 2.0. Her blood gas showed a pH 7.06, pCO2 27.3, pO160 and bicarbonate 9.6. WBC count is 26.1, hemoglobin 13.0 and hematocrit 42.9. PROBLEMS: 1. Acute renal failure most likely related to septic shock. Patient is currently on two pressors and blood pressure is still low. She had been diuresed over the few days due to shortness of breath and leg edema as it was felt that she was in congestive heart failure. In any event, at this point, her CVP should be monitored and she has already received at least 2 liters or normal saline this morning. I would suggest to use sodium bicarbonate drip instead of normal saline because of severe metabolic acidosis. 2. Septic shock, possibly intra-abdominal source. Patient is on vancomycin and Zosyn. I would recommend to adjust the dose for her renal function as she is in oliguric renal failure with the risk of nephrotoxicity. 3. Hyponatremia and hyperkalemia: Most likely these are related to acute renal failure and previous attempts for diuresis, etc. Her electrolytes will need to be monitored closely. She has now received normal saline this morning, which is likely to help with her hyponatremia. Her hyperkalemia is most likely related to acute renal failure and severe metabolic acidosis. 4. Metabolic acidosis related to septic shock, lactic acidosis and acute renal failure. I will recommend to use sodium bicarbonate drip with 150 mEq sodium bicarbonate in each liter of distilled water D5W if she gets hypoglycemic. This consultation was requested by Dr. Miah Herrera yesterday and I did see the patient this morning as I could not see her yesterday as she was busy in radiology. In the meantime, she has been transferred to the intensive care unit and is there with Dr. Berger and Dr. Berger has requested me not to follow the patient anymore. I am signing off her case.
[2018-09-24 13:49] LABS: ALBUMIN 2.7 GM/DL (3.2-5.2); BILIRUBIN,TOTAL 5.6 MG/DL (0.2-1.0); CALCIUM LEVEL 7.6 MG/DL (8.8-10.2); CREATININE FOR GFR 2.32 MG/DL (0.55-1.30); GLOMERULAR FILTRATION RATE 21.8 (>39); POTASSIUM SERUM 4.9 MEQ/L (3.5-5.1); TOTAL PROTEIN 5.8 GM/DL (6.4-8.2)
[2018-09-24] MEDS ORDERED: ATROPINE SULF 1MG/10ML SYRINGE (J0461) ONE (15:07)
[2018-09-24] MEDS ORDERED: EPINEPHrine 1MG/10ML SYRINGE 1.5IN ONE (15:07)
[2018-09-24] MEDS: DEXTROSE 50% 50 ML SYRINGE IV PRN (15:28)
[2018-09-24 18:34] LABS: ABG BASE EXCESS -18.3 (-2.0-2.0); ABG HCO3 9.7 MEQ/L (22.0-26.0); ABG O2 SATURATION 95.1 % (95.0-99.0); ABG PARTIAL PRESSURE CO2 30.4 mmHg (35.0-45.0); ABG PARTIAL PRESSURE O2 94.9 mmHg (75.0-100.0); ABG TOTAL CO2 10.6 MEQ/L (23.0-31.0)
[2018-09-24 18:41] LABS: ABG pH (ARTERIAL) 7.122 UNITS (7.350-7.450)
[2018-09-24 19:01] LABS: CALCIUM LEVEL 7.5 MG/DL (8.8-10.2); CREATININE FOR GFR 2.6 MG/DL (0.55-1.30); GLOMERULAR FILTRATION RATE 19.2 (>39); HEMATOCRIT 45.2 % (36.0-47.0); HEMOGLOBIN 12.9 g/dl (12.0-15.5); MEAN CORPUSCULAR HEMOGLOBIN 26.5 pg (27.0-33.0); MEAN CORPUSCULAR HGB CONC 28.5 g/dl (32.0-36.5); POTASSIUM SERUM 4.7 MEQ/L (3.5-5.1); RED BLOOD COUNT 4.86 10^6/uL (4.00-5.40)
[2018-09-24 19:05] LABS: PLATELET COUNT, AUTOMATED 17 10^3/uL (150-450)
[2018-09-24 19:21] LABS: WHITE BLOOD COUNT 37.4 10^3/uL (4.0-10.0)
[2018-09-24] MEDS: SODIUM BICARBONATE 150 MEQ in D5W 1,000 ML IV SCH (22:05)
[2018-09-25] VITALS (20 sets, daily range): BP systolic 28–102; BP diastolic 19–62
[2018-09-25] MEDS: VASOPRESSIN INJ 20 UNITS in NS 500 ML IV SCH ×2 (00:20→07:54)
[2018-09-25] MEDS: NOREPINEPHRINE BITARTRATE 8 MG in D5W 492 ML IV SCH ×2 (03:11→07:19)
[2018-09-25] MEDS: PIPERACILLIN/TAZOBACTAM SOD 2.25 GM in D5W MINI-BAG PLUS 50 ML IV SCH ×2 (05:04→11:00)
[2018-09-25] MEDS: LEVOTHYROXINE 100MCG TABLET (0.1MG) PO SCH (05:04)
[2018-09-25 06:02] LABS: HEMATOCRIT 45.3 % (36.0-47.0); HEMOGLOBIN 12.5 g/dl (12.0-15.5); MEAN CORPUSCULAR HEMOGLOBIN 26.4 pg (27.0-33.0); MEAN CORPUSCULAR HGB CONC 27.6 g/dl (32.0-36.5); MEAN CORPUSCULAR VOLUME 95.6 fl (80.0-96.0); RED BLOOD COUNT 4.74 10^6/uL (4.00-5.40)
[2018-09-25 06:13] LABS: ABG BASE EXCESS -21.8 (-2.0-2.0); ABG HCO3 9.8 MEQ/L (22.0-26.0); ABG O2 SATURATION 87.1 % (95.0-99.0); ABG PARTIAL PRESSURE CO2 44.5 mmHg (35.0-45.0); ABG PARTIAL PRESSURE O2 73.2 mmHg (75.0-100.0); ABG STANDARD HCO3 8.9 MEQ/L (22.0-26.0); ABG TOTAL CO2 11.1 MEQ/L (23.0-31.0)
[2018-09-25 06:18] LABS: PROTHROMBIN TIME 49.3 SECONDS (12.1-14.4)
[2018-09-25 06:33] LABS: PLATELET COUNT, AUTOMATED 8 10^3/uL (150-450)
[2018-09-25 06:43] LABS: INR 5.21
[2018-09-25] MEDS ORDERED: SODIUM BICARBONATE 8.4% INJ 50 ML SYRINGE IV STA ×2 (06:43→09:39)
[2018-09-25] MEDS ORDERED: SODIUM BICARBONATE 8.4% INJ 50 ML SYRINGE As Ordered ONE ×2 (06:46→06:47)
[2018-09-25 07:02] LABS: ALBUMIN 2.4 GM/DL (3.2-5.2); BILIRUBIN,TOTAL 5.5 MG/DL (0.2-1.0); CALCIUM LEVEL 6.9 MG/DL (8.8-10.2); CREATININE FOR GFR 3.17 MG/DL (0.55-1.30); GLOMERULAR FILTRATION RATE 15.2 (>39); MAGNESIUM LEVEL 2.2 MG/DL (1.8-2.4); POTASSIUM SERUM 5.5 MEQ/L (3.5-5.1); TOTAL PROTEIN 5.8 GM/DL (6.4-8.2)
[2018-09-25] MEDS: IPRATROPIUM 0.5MG/ALBUTEROL 2.5MG INH SOL UD 3ML (DUONEB)(J7620) NEB SCH (07:24)
--- NOTE | 2018-09-25 08:00 | PHACANCOPD ---
PHARMACY VANCOMYCIN DOSING Pt Demographics Demographics Patient Age:73 , Weight:80.800 , Gender: female Adjusted Body Weight Vancomycin Vancomycin indication: SEPSIS Vancomycin Target Ranges: 15-20 mcg/ml Vancomycin Load Y/N: Yes Load Dose Date Time Vancomycin Load Dose: 1.5GM Date: 09/23/17 Time: 20:30 Vancomycin Dose Date: 09/24/18. Current Vancomycin Dose: [1GM IV Q24H (08:00)] Intermittent Dosing?: No Labs Micro Microbiology 09/23/18 Blood Culture - Preliminary, Resulted No growth after 24 hours . All specim... 09/23/18 Blood Culture - Preliminary, Resulted No growth after 24 hours . All specim... 09/19/18 Blood Culture - Final, Complete NO GROWTH AFTER 5 DAYS 09/19/18 Blood Culture - Final, Complete NO GROWTH AFTER 5 DAYS 09/19/18 Respiratory Virus Panel (PCR) (SUSI) - Final, Complete Creatinine Clearance Date:09/23/18. Creatinine Clearance: [35 ml/min]. Assessment and Plan Maintaining Current Dose?: No Reason for dose change: Trough too high Pharmacist Note Pharmacist Note 09/25/18: Day #3 IV vancomyinc tx. Trough level today resulted at 21.7mcg/ml after 2 doses of vancomycin. Her scr is declining at 3.17 today from 1.63. Output has also declined. We will hold any further vancomycin doses today and schedule a random level to be drawn tomorrow AM. We will follow-up on tomorrow's random level and schedule further doses at that time if appropriate. Date: 09/23/18. PharmD note: SEPSIS GOAL 15-20 mcg/ml VANCO 1.5GM LOAD 20:30 FOLLOWED BY VANCO 1GM IV Q24H STARTING 09/24/18 08:00 VANCO TROUGH WHEN AT [facility] Sep 25, 2018 08:00
[2018-09-25] MEDS ORDERED: VANCOMYCIN INTERMITTENT/PULSE DOSING BY CLINICAL PHARMACIST PER DOSING PROTOCOL XX SCH (08:15)
[2018-09-25] MEDS: SODIUM BICARBONATE 150 MEQ in D5W 1,000 ML IV SCH (08:20)
--- NOTE | 2018-09-25 08:47 | REP ---
Portable chest x-ray: Single view. History: Respiratory failure. Comparison chest x-ray is from September 24, 2018. Findings: Endotracheal tube remains in good position at the level of proximal clavicles. NG tube enters left upper quadrant of the abdomen. A right internal jugular central venous line terminates in the expected location of the superior vena cava. EKG monitoring electrodes are seen. Extensive interstitial fibrosis pattern is again seen left greater than right. Lungs are exposed at a somewhat lesser level of inspiration today. No acute infiltrate is appreciated. Electronically Signed by Mitchell Rosenberg MD 09/25/2018 08:39 A
[2018-09-25] MEDS: PANTOPRAZOLE 40MG INJ (PROTONIX) (C9113) IV SCH (09:22)
[2018-09-25] MEDS: CHLORHEXIDINE GLUCONATE 0.12 % 15ML UDC (PERIDEX ORAL RINSE) MT SCH (09:23)
[2018-09-25 10:45] LABS: HEPATITIS B SURFACE ANTIGEN NEGATIVE (NEGATIVE)
[2018-09-25 11:11] LABS: HEPATITIS C VIRUS ABY INDEX 0.1 INDEX (<0.8)
[2018-09-25 11:12] LABS: HEPATITIS B CORE ANTIBODY IGM NEGATIVE (NEGATIVE)
[2018-09-25 11:15] LABS: HEPATITIS A ANTIBODY IGM NEGATIVE (NEGATIVE)
[2018-09-25] MEDS ORDERED: ATROPINE SULFATE 1% OP SOLN 2 ML BTL SL PRN (11:45)
--- NOTE | 2018-09-25 12:37 | CCN ---
DATE: 09/25/2018 The patient was seen and examined this morning during bedside rounds. Overnight, the patient was noted to have worsening hypotension requiring increasing pressors support. The patient was increased to maximum Levophed and on vasopressin. She was also noted overnight to have decreased urine out and is now anuric. Overnight, the patient also was noted to have difficulty with the sensor for her oxygen saturation, as well as for her noninvasive blood pressure monitoring. She does have femoral arterial line in, which was being used to monitor blood pressure and to adjust her pressors. She had an ABG done, which did show worsening acidosis with worsening pH and she was given another amp of bicarbonate and increased on her bicarbonate drip to 150 mL an hour. This morning, the patient's pupils are dilated, very minimally responsive to light. She does not have any corneal reflex and no gag reflex now. She is not responsive to any painful stimuli. PHYSICAL EXAMINATION: Temperature 97.9, pulse 95, respiratory rate 28, blood pressure 67/58, oxygen saturation is unmeasurable on 90% FiO2. Input was 3.8 liters and out 90 mL. GENERAL: The patient is not sedated and is not responsive. She is intubated on mechanical ventilation. HEENT: Pupils are dilated, very minimally reactive. There are no corneal reflexes. Mucous membranes are dry. NECK: Supple. Trachea is midline. Right IJ line in place. CARDIOVASCULAR: Regular rate and rhythm. S1, S2. There is a faint murmur auscultated in the left lower sternal border. PULMONARY: The patient has coarse ventilator breath sounds. Slightly decreased on the left. There are some crackles at the bases. No wheezes or rhonchi. ABDOMEN: Soft, nondistended. Does not have any bowel sounds present. EXTREMITIES: The patient has some mild pitting edema in the lower extremities bilaterally. There is significant mottling and her extremities are cool. LABORATORIES: WBC 33.0, hemoglobin 12.5, platelets are 8. Sodium 121, potassium 5.5, chloride 83, bicarbonate 9, BUN 35, creatinine 3.14, glucose 128, lactic acid overnight was 14.6. AST 61727, ALT 5666, pH this morning 6.960, PCO2 of 44.5, PO2 of 78.2, INR is 5.21. ASSESSMENT AND PLAN: The patient is a 73-year-old female with a past medical history of congestive heart failure (CHF), diabetes, hypothyroidism, chronic obstructive pulmonary disease (COPD) with evidence of pulmonary fibrosis with chronic hypoxemic respiratory failure requiring oxygen supplementation, who initially presented with symptoms of fluid overload. The patient then was noted to have abnormal liver function tests and hypotension, as well as increasing leukocytosis and lactic acidosis. The patient likely with septic shock was intubated yesterday and started on pressors for blood pressure support. She was also started on broad spectrum antibiotics for septic shock. The patient also was noted to have severe lactic metabolic acidosis and acute renal failure, was started on a bicarbonate drip for her acidosis. Suspect likely component of bowel ischemia at this time given the persistent acidosis despite fluid resuscitation. The patient overnight has had worsening shock requiring max Levophed and vasopressin. She also has worsening acidosis despite bicarbonate drip administration. She does appear to have worsening thrombocytopenia and coagulopathy, likely disseminated intravascular coagulation (DIC) in the setting of her septic shock. The patient was also noted to have worsening urine output and is currently anuric and she does have some acute renal failure, like acute tubular necrosis (ATN) at this point, along with some hyponatremia and hyperkalemia secondary to her renal failure. Discussed with patient's family at the bedside, her son and her brother about her extremely poor prognosis at this time. She was made DO NOT RESUSCITATE yesterday, as per her prior wishes. Family had stated that she did not want to be kept on ventilatory support or be resuscitated. At this time, given her worsening multiorgan failure and extremely poor prognosis, the decision was made for terminal weaning from ventilator and comfort measures only. Therefore, the patient will be terminally weaned from the ventilator later this morning. We will have medication for pain control and for increased secretions and for comfort. We will discontinue all medications and all interventions that are not necessary for comfort only. CODE STATUS: DO NOT RESUSCITATE and DO NOT INTUBATE. Total critical care time spent, not including any procedures, approximately 50 minutes. LIANAD
--- NOTE | 2018-09-25 13:03 | DS.PDOC ---
Discharge Summary General Date of Admission Sep 18, 2018 at 23:22 Date of Discharge 09/25/18 Discharge Summary PROCEDURES PERFORMED DURING STAY: Endotracheal intubation, RIJ central venous catheter placement, femoral arterial line placement ADMITTING DIAGNOSES: 1. CHF exacerbation DISCHARGE DIAGNOSES: 1. Septic Shock COMPLICATIONS/CHIEF COMPLAINT: Congestive Heart Failure, Copd. HISTORY OF PRESENT ILLNESS: Patient is a 73 yo f with PMHx of COPD with chronic hypoxemic respiratory failure on NC supplementation, CHF, DJD, anxiety, DM, hypothyroidism who presented initially with increased SOB and LE edema. Was initially treated for CHF exacerbation with diuresis. HOSPITAL COURSE: The patient then was noted to have abnormal liver function tests and hypotension, as well as increasing leukocytosis and lactic acidosis. The patient likely with septic shock was intubated 09/24/18 and started on pressors for blood pressure support. She was also started on broad spectrum antibiotics for septic shock. The patient also was noted to have severe lactic metabolic acidosis and acute renal failure, was started on a bicarbonate drip for her acidosis. Suspect likely component of bowel ischemia at this time given the persistent acidosis despite fluid resuscitation. The patient overnight has had worsening shock requiring max Levophed and vasopressin. She also has worsening acidosis despite bicarbonate drip administration. She does appear to have worsening thrombocytopenia and coagulopathy, likely disseminated intravascular coagulation (DIC) in the setting of her septic shock. The patient was also noted to have worsening urine output and is currently anuric and she does have some acute renal failure, like acute tubular necrosis (ATN) at this point, along with some hyponatremia and hyperkalemia secondary to her renal failure. Discussed with patient's family at the bedside, her son and her brother about her extremely poor prognosis at this time. She was made DO NOT RESUSCITATE yesterday, as per her prior wishes. Family had stated that she did not want to be kept on ventilatory support or be resuscitated. At this time, given her worsening multiorgan failure and extremely poor prognosis, the decision was made for terminal weaning from ventilator and comfort measures only. Therefore, the patient will be terminally weaned from the ventilator later this morning. We will have medication for pain control and for increased secretions and for comfort. We will discontinue all medications and all interventions that are not necessary for comfort only. DISCHARGE MEDICATIONS: Please see below. ALLERGIES: Please see below. PHYSICAL EXAMINATION ON DISCHARGE: VITAL SIGNS: Please see below. GENERAL: The patient is not sedated and is not responsive. She is intubated on mechanical ventilation. HEENT: Pupils are dilated, very minimally reactive. There are no corneal reflexes. Mucous membranes are dry. NECK: Supple. Trachea is midline. Right IJ line in place. CARDIOVASCULAR: Regular rate and rhythm. S1, S2. There is a faint murmur auscultated in the left lower sternal border. PULMONARY: The patient has coarse ventilator breath sounds. Slightly decreased on the left. There are some crackles at the bases. No wheezes or rhonchi. ABDOMEN: Soft, nondistended. Does not have any bowel sounds present. EXTREMITIES: The patient has some mild pitting edema in the lower extremities bilaterally. Extremities cool and very mottled. LABORATORY DATA: Please see below. IMAGING: CT chest 09/19/18- no PE. Emphysematous changes with evidence of interlobular septal thickening and fobrosis, more on left side. No effusions. Cholelithiasis. 1.8cm nodule in left adrenal, likely adenoma. Abd MRI 09/23/18- large gallstone 2.4cm with mildly distended gallbladder and wall edema. No biliary dilatation or choledocholithiasis. Trace upper abdominal ascites diffusely PROGNOSIS: Very Poor ACTIVITY: None DIET: None DISCHARGE PLAN: None DISPOSITION: 20 . DISCHARGE INSTRUCTIONS: 1. none, ITEMS TO FOLLOWUP ON ON OUTPATIENT: 1. none, DISCHARGE CONDITION: TIME SPENT ON DISCHARGE: Greater than 25 minutes. Vital Signs/I&Os Vital Signs Date Time Temp Pulse Resp B/P (MAP) Pulse Ox O2 Delivery O2 Flow Rate FiO2 09/25/18 07:20 29 90 09/25/18 07:19 67/58 09/25/18 06:00 95 Ventilator 09/25/18 04:00 97.9 09/25/18 01:31 94 09/24/18 05:21 8.0 I&O- Last 24 Hours up to 6 AM 09/25/18 05:59 Intake Total 5306.4 ml Output Total 90 ml Balance 5216.4 ml Laboratory Data Labs 24H Laboratory Tests 2 09/24/18 15:24: Bedside Glucose (Misc Panel) 32*L 09/24/18 15:42: Bedside Glucose (Misc Panel) 79L 09/24/18 17:42: Bedside Glucose (Misc Panel) 75L 09/24/18 18:25: Nucleated Red Blood Cells % (auto) 0.1H, Anion Gap 25H, Glomerular Filtration Rate 19.2L, Blood Urea Nitrogen 33H, Creatinine 2.60H, Sodium Level 126L, Potassium Level 4.7, Chloride Level 88L, Carbon Dioxide Level 13L, Calcium Level 7.5L 09/24/18 18:26: Blood Gas Bicarbonate Standard 11.0L, Arterial Blood pH 7.122*L, Arterial Blood Partial Pressure CO2 30.4L, Arterial Blood Partial Pressure O2 94.9, Arterial Blood Total CO2 10.6L, Arterial Blood HCO3 9.7L, Arterial Blood Base Excess - 18.3L, Arterial Blood Oxygen Saturation 95.1, Lactic Acid Level 14.6*H 09/24/18 20:01: Bedside Glucose (Misc Panel) 60L 09/24/18 21:09: Bedside Glucose (Misc Panel) 57L 09/24/18 22:04: Bedside Glucose (Misc Panel) 49L 09/24/18 23:22: Bedside Glucose (Misc Panel) 64L 09/25/18 00:15: Bedside Glucose (Misc Panel) 89 09/25/18 02:08: Bedside Glucose (Misc Panel) 92 09/25/18 05:06: Nucleated Red Blood Cells % (auto) 0.3H, Immature Platelet Fraction 25.6H, Prothrombin Time 49.3H, Prothromb Time International Ratio 5.21*H, Anion Gap 29H, Glomerular Filtration Rate 15.2L, Blood Urea Nitrogen 35H, Creatinine 3.17H, Sodium Level 121L, Potassium Level 5.5H, Chloride Level 83L, Carbon Dioxide Level 9L, Calcium Level 6.9L, Aspartate Amino Transf (AST/SGOT) 77711F, Alanine Aminotransferase (ALT/SGPT) 5666H, Alkaline Phosphatase 117, Total Bilirubin 5.5H, Total Protein 5.8L, Albumin 2.4L, Magnesium Level 2.2, Albumin/Globulin Ratio 0.71L 09/25/18 05:15: Bedside Glucose (Misc Panel) 92 09/25/18 06:07: Blood Gas Bicarbonate Standard 8.9L, Arterial Blood pH 6.960*L, Arterial Blood Partial Pressure CO2 44.5, Arterial Blood Partial Pressure O2 73.2L, Arterial Blood Total CO2 11.1L, Arterial Blood HCO3 9.8L, Arterial Blood Base Excess - 21.8L, Arterial Blood Oxygen Saturation 87.1L 09/25/18 06:15: Vancomycin Level Trough 21.7H CBC/BMP Laboratory Tests 09/24/18 18:25 Red Blood Count 4.86, Mean Corpuscular Volume 93.0, Mean Corpuscular Hemoglobin 26.5 L, Mean Corpuscular Hemoglobin Concent 28.5 L, Red Cell Distribution Width 20.0 H, Calcium Level 7.5 L 09/25/18 05:06 Red Blood Count 4.74, Mean Corpuscular Volume 95.6, Mean Corpuscular Hemoglobin 26.4 L, Mean Corpuscular Hemoglobin Concent 27.6 L, Red Cell Distribution Width 20.2 H, Calcium Level 6.9 L, Aspartate Amino Transf (AST/SGOT) 46411 H, Alanine Aminotransferase (ALT/SGPT) 5666 H, Alkaline Phosphatase 117, Total Bilirubin 5.5 H, Total Protein 5.8 L, Albumin 2.4 L FSBS Laboratory Tests Test 09/24/18 15:24 09/24/18 15:42 09/24/18 17:42 09/24/18 20:01 Range/Units Bedside Glucose (Misc Panel) 32 79 75 60 83-110 MG/DL Test 09/24/18 21:09 09/24/18 22:04 09/24/18 23:22 09/25/18 00:15 Range/Units Bedside Glucose (Misc Panel) 57 49 64 89 83-110 MG/DL Test 09/25/18 02:08 09/25/18 05:15 Range/Units Bedside Glucose (Misc Panel) 92 92 83-110 MG/DL Microbiology Microbiology 09/23/18 Blood Culture - Preliminary, Resulted No growth after 24 hours . All specim... 09/23/18 Blood Culture - Preliminary, Resulted No growth after 24 hours . All specim... 09/19/18 Blood Culture - Final, Complete NO GROWTH AFTER 5 DAYS 09/19/18 Blood Culture - Final, Complete NO GROWTH AFTER 5 DAYS 09/19/18 Respiratory Virus Panel (PCR) (SUSI) - Final, Complete Allergies Coded Allergies: No Known Allergies (Unverified , 04/22/18) RENATO RINCON MD Sep 25, 2018 13:03
--- NOTE | 2018-09-25 21:40 | ECGEPIP ---
Stationary ECG Study [facility] Test Date: 2018-09-24 Pat Name: VITOR BRAND Department: Room: [place] [address] Gender: F [employer]visor [employer]: : 1945 Requested By: RUKHSANA Rose Order Number: [id number] Reading MD: Barney Lala Measurements Intervals [place] Rate: 89 P: 63 WI: 128 QRS: 111 QRSD: 105 T: 22 QT: 384 QTc: 469 Interpretive Statements SINUS RHYTHM. Baseline noise. LEFT ATRIAL ENLARGEMENT Low precordial voltages. PATTERN CONSISTENT WITH PULMONARY DISEASE INCOMPLETE RIGHT BUNDLE BRANCH BLOCK Nonspecific ST-T abnormalities. Electronically Signed On 09-25-2018 21:39:55 EST by Barney Lala
[2018-09-28 14:14] LABS: ACETOHEXAMIDE Negative ug/mL (20-60); CHLORPROPAMIDE Negative ug/mL (75-250); GLIMEPIRIDE 23 ng/mL (80-250); GLIPIZIDE Negative ng/mL (200-1000); GLYBURIDE Negative ng/mL (UP TO 1500); NATEGLINIDE Negative ng/mL (UP TO 10000); REPAGLINIDE Negative ng/mL (UP TO 200); TOLAZAMIDE Negative ug/mL (UP TO 80); TOLBUTAMIDE Negative ug/mL (40-100)
== END 2018-09-25 11:57 | disposition expired | DRG 208 ==
LOC: EDBD 15:44 → M ED 15:44 → M ED INP 23:22 → M PCU 09-19 12:16 → M ICU 09-24 00:24
PROVIDERS: ADMIT Internal Medicine; ATTEND Internal Medicine Pulmonary Disease
PROC: 5A1945Z Respiratory Ventilation, 24-96 Consecutive Hours (ICD-10-PCS; principal; 2018-09-24)
PROC: 04HY32Z Insertion of Monitoring Device into Lower Artery, Percutaneous Approach (ICD-10-PCS; 2018-09-24)
PROC: 02HV33Z Insertion of Infusion Device into Superior Vena Cava, Percutaneous Approach (ICD-10-PCS; 2018-09-24)
DX: J96.21 Acute and chronic respiratory failure with hypoxia (principal); R65.21 Severe sepsis with septic shock; A41.9 Sepsis, unspecified organism; N17.0 Acute kidney failure with tubular necrosis; D65 Disseminated intravascular coagulation [defibrination syndrome]; I50.23 Acute on chronic systolic (congestive) heart failure; E87.2 Acidosis; I24.8 Other forms of acute ischemic heart disease; I47.2 Ventricular tachycardia; E87.1 Hypo-osmolality and hyponatremia; I11.0 Hypertensive heart disease with heart failure; Z51.5 Encounter for palliative care; Z66 Do not resuscitate; J44.9 Chronic obstructive pulmonary disease, unspecified; E03.9 Hypothyroidism, unspecified; E87.5 Hyperkalemia; K76.1 Chronic passive congestion of liver; E11.649 Type 2 diabetes mellitus with hypoglycemia without coma; E66.9 Obesity, unspecified; J84.10 Pulmonary fibrosis, unspecified; E78.5 Hyperlipidemia, unspecified; F32.9 Major depressive disorder, single episode, unspecified; I27.29 Other secondary pulmonary hypertension; Z99.81 Dependence on supplemental oxygen; Z79.84 Long term (current) use of oral hypoglycemic drugs; Z79.899 Other long term (current) drug therapy; Z87.891 Personal history of nicotine dependence; Z68.28 Body mass index [BMI] 28.0-28.9, adult